=== PATIENT | female | born 1945 | race Caucasian/White ===

== ENCOUNTER 2019-07-19 14:44 | Inpatient (IN) ==
[2019-07-19] MEDS: NS 1,000 ML IV SCH (16:59)
[2019-07-19 17:05] LABS: URINE SOURCE CLEAN CATCH
[2019-07-19 17:12] LABS: BILIRUBIN URINE NEGATIVE (NEGATIVE); BLOOD URINE NEGATIVE (NEGATIVE); COLOR YELLOW; GLUCOSE URINE NEGATIVE (NEGATIVE); KETONE URINE 100 mg/dL (NEGATIVE); LEUKOCYTES URINE NEGATIVE (NEGATIVE); NITRITE URINE NEGATIVE (NEGATIVE); PH URINE 6.5; PROTEIN URINE TRACE mg/dL (NEGATIVE); SP GRAVITY URINE 1.015; TURBIDITY URINE CLEAR (CLEAR); UR EPITHELIAL CELLS <10 /HPF (<10); URINE BACTERIA NEGATIVE /HPF; URINE RBC <10 /HPF (<10); URINE WBC <10 /HPF (<10); UROBILINOGEN URINE NORMAL (NORMAL)
[2019-07-19 17:34] LABS: URINE CRYSTALS CA OXALATE PRESENT
[2019-07-19 17:49] LABS: AGAP 10; ALB/GLOB RATIO 1.2; ALBUMIN 3.2 g/dL (3.5-5.0); ALKALINE PHOSPHATASE 67 U/L (32-104); BUN 11 mg/dL (8-22); CALCIUM 8.6 mg/dL (8.8-10.2); CHLORIDE 94 mmol/L (98-107); COSMO 259; CREATININE 0.5 mg/dL (0.5-0.9); ESTIMATED GFR > 60; GLUCOSE 83 mg/dL (70-104); GOT 24 U/L (10-30); GPT 10 U/L (10-36); POTASSIUM 3.5 mmol/L (3.5-5.1); SODIUM 130 mmol/L (136-145); TCO2 26 mmol/L (25-35); TOTAL BILIRUBIN 0.47 mg/dL (0.20-1.00); TOTAL PROTEIN 5.9 g/dL (6.3-8.3)
--- NOTE | 2019-07-19 18:20 | CONSULTATION ---
DATE OF CONSULTATION: 07/19/2019 Ms. Vieira is a 73-year-old patient of mine. For really going on 3 months, she has had increasing early satiety, dyspepsia, not eating much. She estimates she has lost about 20 pounds in the last 3 months. She was seen by Dr. Wilcox. He did an EGD and found gastritis and then followed up because she was complaining of abdominal swelling, and he did a colonoscopy in which he found a stricture, 75% to 85%, in the left sigmoid and a biopsy apparently has confirmed cancer. PAST MEDICAL HISTORY: Really uneventful. She has had her tonsils out when she was a child. She had a compression fracture, I think, in the lower thoracic about a year ago. ALLERGIES: She has no known drug allergies. FAMILY HISTORY: Pretty unremarkable except for the fact that her mother had a rare form of liver cancer, apparently metastatic and apparently another family member her sister may have had some liver dysfunction as well. SOCIAL HISTORY: She lives with her . She takes care of her youngest daughter and negative for alcohol, tobacco, or illicit drugs. REVIEW OF SYSTEMS: General: Weight loss as above. About 20 pounds over the last 3 months. HEENT: No change in visual or hearing acuity. She denies any fever or chills. Neck: Without any adenopathy or neck pain. Respiratory: No increased work of breathing or dyspnea. Cardiovascular: No chest pain or tachy palpitation. Gastrointestinal: Early satiety, abdominal bloating, poor appetite, weight loss, dyspepsia. No real true nausea and no trouble swallowing. Musculoskeletal/Neurologic: No focal complaints. Endocrinologic/Hematologic: No significant history. PHYSICAL EXAMINATION: Vital Signs: Temperature 97.5 degrees, pulse 99, respirations 16, blood pressure 112/63. Eyes: Pupils are equal and round. Lungs: Clear in all lung johnson. Cardiovascular: Regular rhythm and rate without murmur or S3. Abdomen: Soft. Nontender, nondistended. Positive bowel sounds. Skin: Warm and dry. Extremities: No pedal edema. LABORATORY DATA: The only thing back right now is the urinalysis. ASSESSMENT AND PLAN: 1. Left sigmoid stricture. Looks like malignancy. I think the plan is to get a CT scan and make sure there is no metastatic disease. Dr. Rueda is the oncologist, admitted to Dr. Morales's service, and Dr. Wilcox is following from Gastroenterology. CT of the abdomen and pelvis ordered for in the morning. 2. She has lost 20 pounds in 3 months. I am going to put her on some Clinimix. We are going to check her T4, TSH, B12, and folate. I think we will check an a.m. cortisol level as well, and we will check her electrolytes with magnesium and another CBC in the morning. We will give her fluids, basically just Clinimix, and I think she is on a clear liquid diet, n.p.o. after midnight in preparation a CT scan. cc: MD Fidel Elizondo MD MTDGissel
--- NOTE | 2019-07-19 18:47 | GASTROENTEROLOGY CONSULTATION ---
DATE: 07/19/2019 REASON FOR CONSULTATION: Colonic mass. HISTORY OF PRESENT ILLNESS: Ms. Kat Vieira is a 73-year-old woman who underwent recent colonoscopy on 07/16/2019 for abdominal pain and weight loss, found to have a partially obstructing mass in the hepatic flexure by Dr. Wilcox. The mass was biopsied, site was tattooed, and she was referred to Oncology and Surgery. She was seen by Dr. Rueda today and he was concerned that given her anemia and inability to tolerate oral contrast that she would need admission for expedited workup and definitive treatment. She reports some abdominal discomfort, but no nausea vomiting.She is having bowel movements. No rectal bleeding. No cardiopulmonary symptoms. She is tolerating clear liquids. She is scheduled for staging CT in the morning. REVIEW OF SYSTEMS: As per HPI; otherwise 12-point ROS negative PAST MEDICAL HISTORY: 1. Hypothyroidism. 2. Anxiety. PAST SURGICAL HISTORY: Reviewed. ALLERGIES: No known drug allergies. SOCIAL HISTORY: No smoking, alcohol, or drug use. FAMILY HISTORY: Mother had liver cancer. MEDICATIONS: 1. Thyroid medicine. 2. Clonazepam. 3. Omeprazole. 4. Culturelle. PHYSICAL EXAMINATION: Vital Signs: Temperature 97.5 degrees, heart rate 99, respiratory rate 16, blood pressure 112/63, O2 saturation 100% on room air. General: Patient is awake, alert, oriented, in no acute distress. She is thin. HEENT: Sclerae anicteric. Moist mucous membranes. Extraocular motor intact. Neck: Supple. No JVD or lymphadenopathy. Cardiac: Regular rate and rhythm. No murmurs, rubs, or gallops. Lungs: Clear to auscultation bilaterally. No wheezing. Abdomen: Minimally distended. Bowel sounds are present. Minimal tenderness to palpation throughout. No rebound or guarding. Extremities: No clubbing, cyanosis, or edema. Neurologic: Nonfocal. LABS: Pending. Staging CT ordered for the morning. ASSESSMENT AND PLAN: Ms. Kat Vieira is a 73-year-old woman who presented to Dr. Wilcox as an outpatient with progressive weight loss and diarrhea, found to have a partially obstructing colonic mass in the hepatic flexure. The patient was admitted for expedited workup by Dr. Morales and Dr. Rueda. Staging CT is scheduled for the morning. The colonic mass is not amenable for colonic stent placement, given the location in the right colon, particularly the hepatic flexure, which is high risk for migration and perforation. At this time, she does not appear to have complete bowel obstruction. # Colonic mass # Partial bowel obstruction # Anemia # Weight loss # Diarrhea Thank you for this consult. Please call with any questions. We will follow peripherally. cc: Fidel Morales MD MTDD
[2019-07-19 18:55] LABS: BASO# 0.02 X1000 (0.0-0.2); BASO% 0.2 % (0.0-0.8); EOS# 0.15 X1000 (0.0-0.7); EOS% 1.6 % (0.0-10.0); HEMATOCRIT 32.5 % (37.0-47.0); HEMOGLOBIN 10.5 g/dL (12.0-16.0); LYMPH# 1.64 X1000 (1.2-3.4); LYMPH% 17.8 % (20.5-51.1); MCH 26.6 PG (27-31); MCHC 32.3 g/dL (33-37); MCV 82.3 FL (81-99); MONO% 7.6 % (1.7-9.3); MPV 9.6 FL (7.4-10.4); NEUT% 72.8 % (42.2-75.2); PLT 350 X1000 (130-400); RBC 3.95 XMIL (4.2-5.4); RDW 14.2 % (11.5-14.5); WBC 9.21 X1000 (4.8-10.8)
[2019-07-19 19:26] LABS: AGAP 11; ALBUMIN 2.8 g/dL (3.5-5.0); ALKALINE PHOSPHATASE 64 U/L (32-104); BUN 10 mg/dL (8-22); CALCIUM 8.8 mg/dL (8.8-10.2); CHLORIDE 99 mmol/L (98-107); COSMO 274; CREATININE 0.4 mg/dL (0.5-0.9); ESTIMATED GFR > 60; GLUCOSE 110 mg/dL (70-104); GOT 26 U/L (10-30); GPT 9 U/L (10-36); POTASSIUM 3.7 mmol/L (3.5-5.1); SODIUM 137 mmol/L (136-145); TCO2 27 mmol/L (25-35); TOTAL BILIRUBIN 0.38 mg/dL (0.20-1.00); TOTAL PROTEIN 5.5 g/dL (6.3-8.3)
[2019-07-19 19:52] LABS: TSH 0.88 uIUmL (0.27-4.20)
[2019-07-19] MEDS: CLINIMIX E 4.25%-5% SOLUTION 1,000 ML IV SCH (20:03)
[2019-07-20] MEDS: CLINIMIX E 4.25%-5% SOLUTION 1,000 ML IV SCH ×2 (04:44→18:40)
[2019-07-20] MEDS: PROTONIX PO SCH (06:43)
--- NOTE | 2019-07-20 08:23 | Diag Imaging Result Doc PS360 ---
CT ABD/PELVIS W/PO AND IV CON - 07/20/2019 INDICATION: colon mass COMPARISON: None FINDINGS: The lung bases are clear and the heart size is normal. There are numerous simple well-circumscribed, round fluid density cysts throughout the liver. The largest is in the central right lobe and measures 4.3 x 3.8 cm. The majority however measure less than a centimeter. There are numerous peripelvic cysts of the left kidney. Otherwise the kidneys are normal. The adrenals, pancreas, and spleen are normal. The transverse colon is very redundant and looped solidly down into the mid pelvis. There is a large mass of the mid-distal transverse colon causing an apical core type stricture. In total this mass measures about 8.6 x 5.9 cm in length and breath. No significant adenopathy. Trace pelvic free fluid. Urinary bladder, uterus, and rectum are normal. There is a large benign bony hemangioma in L3. There are high-grade compression fractures of T12, L1, L4, and L5. There are also several compression fractures of the upper thoracic spine. No bony retropulsion. IMPRESSION: 1. Large, nearly obstructing mass in the mid-distal transverse colon. 2. Cyst in the liver and peripelvic cysts of the left kidney. 3. Several compression fractures in the thoracolumbar spine. This exam was performed using automated exposure control, adjustment of mA or kV according to patient size, and/or use of iterative reconstruction technique Electronically signed by Gennaro Loredo 07/20/2019 8:21 AM
--- NOTE | 2019-07-20 08:29 | GENERAL SURGERY PROGRESS NOTE ---
DATE: 07/20/2019 SUBJECTIVE: The patient seems to be doing okay. OBJECTIVE: Vital Signs: The patient is currently afebrile. Her vital signs are stable. General: No acute distress. HEENT: Normocephalic, atraumatic. Pupils equal, round, reactive to light. Mucous membranes moist. Oropharynx benign. Neck: Supple. Trachea midline. Cardiovascular: Regular rate and rhythm. Lungs: Grossly clear. Abdomen: Soft, nontender at this time. Extremities: Moves all extremities. Neurologic: Grossly intact. Skin: No signs of jaundice. Vascular: All extremities perfused. LABORATORY DATA: White blood cell count is normal. Hematocrit is slightly low at 32. Platelet count 350,000. CMP reviewed. Of note, her albumin is 2.8. ASSESSMENT AND PLAN: A 73-year-old female with hepatic flexure mass. 1. Colonic mass. At this time, will get a CT scan for staging purposes. Will also get a baseline CEA, PT, PTT given the fact she is likely going to require surgery in the near future. Will follow up with the results of these, and make further recommendations as far as plan. Will keep her on a clear liquid diet for right now. 2. Severe protein malnutrition. At this time, we have started her on Clinimix, but will need to consider preoperative and perioperative total parenteral nutrition since her albumin is low. 3. Multiple medical comorbidities. Currently being managed by Dr. López. cc: Fidel Morales MD
[2019-07-20] MEDS ORDERED: NS 250 ML ONE (08:32)
[2019-07-20 08:46] LABS: INR 1.18; PROTIME 15.2 Seconds (11.0-16.0)
[2019-07-20 08:47] LABS: PTT 31.3 Seconds (22.3-41.8)
--- NOTE | 2019-07-20 09:49 | PROGRESS NOTE ---
DATE: 07/20/2019 Ms. Vieira did not sleep much last night but the CT scan did not show any sign of metastasis and I think the plan is for a partial colon resection on . OBJECTIVE: Vital Signs: She remains afebrile, temperature 98.4 degrees, pulse 90, respirations 19, blood pressure 121/62. HEENT: Pupils are equal and round. Lungs: Are clear in all lung johnson. Cardiovascular: Regular rhythm and rate without murmur or S3. Abdomen: Is soft. Skin: Is warm and dry. LABORATORY DATA: Review of lab from yesterday, white count 9210, hematocrit 32, platelet count 350,000. Sodium 137, potassium 3.7, chloride 99, BUN 10, creatinine 0.4, albumin 2.8. B12 was 1000. Folate 25. T4 1.26, TSH 0.88. Pro time is 15. Urinalysis unremarkable. Plan is to put a PICC line and start TPN. I had started her on Clinimix yesterday. She is on Protonix 40 mg p.o. daily and I will probably give her high-dose Protonix IV when we are close to surgery as she does have underlying gastritis. cc: MD Fidel Elizondo MD
[2019-07-20 10:59] LABS: IRON SATURATION 14 %; TIBC 154 ug/dL; TOTAL IRON 21 ug/dL (49-151); UNBOUND IRON 133 ug/dL (112-346)
[2019-07-20 11:05] LABS: AGAP 9; ALBUMIN 2.6 g/dL (3.5-5.0); BUN 9 mg/dL (8-22); CALCIUM 8.4 mg/dL (8.8-10.2); CHLORIDE 102 mmol/L (98-107); COSMO 275; CREATININE 0.5 mg/dL (0.5-0.9); ESTIMATED GFR > 60; GLUCOSE 112 mg/dL (70-104); MAGNESIUM 2.2 mg/dL (1.5-2.7); PHOSPHORUS 3.9 mg/dL (2.7-4.5); POTASSIUM 4.5 mmol/L (3.5-5.1); SODIUM 138 mmol/L (136-145); TCO2 27 mmol/L (25-35)
[2019-07-20] MEDS ORDERED: D10W 1,000 ML IV SCH (13:00)
[2019-07-20] MEDS ORDERED: HUMULIN R SUBQ SCH (13:00)
--- NOTE | 2019-07-20 13:58 | HEMO/ONC CONSULTATION ---
DATE: 07/20/2019 REASON FOR CONSULTATION: Evaluation of colonic mass. HISTORY OF PRESENT ILLNESS: This is a patient referred to our office from Dr. Wilcox. His evaluation showed a near obstructing colon mass. The patient went to Dr. Wilcox for routine colonoscopy with a history of early satiety, dyspepsia and decreased appetite for approximately 3 months. She states she had abdominal swelling, pain and has lost about 20 pounds in the last [address] Wilcox's colonoscopy found a 75 to 85 percent stricture in the left sigmoid and a biopsy confirmed cancer. The patient was admitted yesterday for further evaluation. She had a abdominal CT this morning. PAST MEDICAL HISTORY: Hypothyroidism and anxiety. PAST SURGICAL HISTORY: Tonsillectomy and a lower thoracic compression fracture approximately a year ago. ALLERGIES: No known drug allergies. HOME MEDICATIONS: Probiotic, Prilosec, MiraLAX, thyroid medication and Clonazepam. SOCIAL HISTORY: Patient denies smoking, alcohol, or drug use. FAMILY HISTORY: Mother had liver cancer. REVIEW OF SYSTEMS: Positive for weight loss, approximately 20 pounds over the last 3 months, early satiety, abdominal bloating, poor appetite, dyspepsia. Denies nausea, vomiting, diarrhea, or trouble swallowing. PHYSICAL EXAM: Vital Signs: Temperature 98.4 degrees, pulse rate 90, respiratory rate 19, blood pressure 121/62, O2 saturation 100% on room air. She is in 0/10 pain. General: Elderly female in no acute distress. Thin female with a BMI of 19.5. Skin: Warm, dry, and intact without rashes or lesions. HEENT: Sclerae is anicteric. PERRLA. Oral mucosa is pink and moist. Cardiovascular: Normal S1, S2. Heart rate and rhythm regular. No gallops, murmurs, or rubs auscultated. Respiratory: No signs of respiratory distress. Lungs are clear to auscultation. No adventitious breath sounds. Abdomen: Soft, nontender without distention. Musculoskeletal: Upper and lower extremities without edema. Neurological: Awake, alert, and oriented x3. LABORATORY: No CBC done today. Yesterday's hemoglobin 10.5, hematocrit 32.5, platelet count 350,000. Chemistry today: Iron 21, iron percent sat 14, ferritin 152, vitamin B12 1031, folate 25.8, cortisol 16.8, CEA 2.4. RADIOLOGY: Abdomen, pelvis CT showed a near obstructing colon mass with lymph node involvement and liver cyst. ASSESSMENT: 1. Colonic mass with left sigmoid stricture. 2. Severe protein malnutrition. 3. Normocytic anemia. PLAN: 1. The CT scan did not show any evidence of disease metastasis. 2. Dr. Morales plans to take the patient to surgery for partial colon resection on . 3. We have added an iron profile to evaluate her anemia and will consider IV iron if necessary. 4. Continue to manage the patient's nutritional needs. We will continue to follow closely. Dictated by ZAMZAM Puckett for Aldair Rueda MD Patient seen and examined. As above. Patient presented with abdominal cramping and weight loss. She was admitted to the hospital due to near obstructing colon mass with symptoms. CT of the abdomen and pelvis done this morning reveals near obstructing colon mass with lymph node with lymph node enlargement. Discussed with Dr. Fidel Morales. Proceed with surgery as planned. Check anemia labs and plan to give IV iron as needed. Aldair Rueda M.D. cc: MD Fidel Ram MD [facility]ITAL[facility]issel
[2019-07-20] MEDS ORDERED: TPN ELECTROLYTES 20 ML, MAGNESIUM SULFATE 4 MEQ, POTASSIUM CHLORIDE 30 MEQ, SODIUM PHOS... IV SCH ×8 (15:00)
[2019-07-20] MEDS: LIPOSYN 20% 250 ML IV SCH (15:04)
[2019-07-20] MEDS: NS 1,000 ML IV SCH (18:40)
[2019-07-20] MEDS: HUMULIN R SUBQ SCH ×2 (18:41→21:45)
[2019-07-21] MEDS: HUMULIN R SUBQ SCH ×5 (01:43→19:10)
--- NOTE | 2019-07-21 05:51 | GENERAL SURGERY PROGRESS NOTE ---
DATE: 07/21/2019 SUBJECTIVE: Patient seems to be doing well. No major issues. We reviewed her CT scan yesterday. This looks like it is amenable to resection. I discussed with her this extensively yesterday. OBJECTIVE: Vital Signs: Patient is currently afebrile. Her vital signs are stable. General: No acute distress. HEENT: Normocephalic, atraumatic. Pupils equal, round, reactive to light. Mucous membranes moist. Oropharynx benign. Neck: Supple. Trachea midline. Cardiovascular: Regular rate and rhythm. Lungs: Grossly clear. Abdomen: Soft, nontender. Extremities: Moves all extremities. Neurologic: Grossly intact. Skin: No signs of jaundice. Vascular: All extremities perfused. LABORATORY: Reviewed. 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 Colon cancer. At this time, we will plan on surgical intervention tomorrow. Discussed with her yesterday the risks, benefits, alternatives of the procedure. Risks including, but not limited to bleeding, infection, risk of anesthesia, risk of anastomotic issues, risk of recurrence, risk of injuring other organs discussed. She voiced understanding wished to proceed with the procedure. We will make her NPO after midnight tonight. We will put her on antibiotics tomorrow for the perioperative time. We will proceed with intervention. cc: Fidel Morales MD
[2019-07-21] MEDS: PROTONIX PO SCH (05:59)
[2019-07-21 06:04] LABS: ESTIMATED GFR > 60
[2019-07-21 06:13] LABS: AGAP 8; BUN 9 mg/dL (8-22); CALCIUM 8.4 mg/dL (8.8-10.2); CHLORIDE 102 mmol/L (98-107); CHOLESTEROL 91 mg/dL (0-200); COSMO 275; CREATININE 0.4 mg/dL (0.5-0.9); GLUCOSE 107 mg/dL (70-104); GOT 17 U/L (10-30); MAGNESIUM 2.3 mg/dL (1.5-2.7); PHOSPHORUS 4.1 mg/dL (2.7-4.5); POTASSIUM 4.1 mmol/L (3.5-5.1); SODIUM 138 mmol/L (136-145); TCO2 28 mmol/L (25-35); TRIGLYCERIDES 82 mg/dL (35-135)
[2019-07-21] MEDS ORDERED: INJECTAFER 750 MG in NS 250 ML IV ONE (10:00)
--- NOTE | 2019-07-21 10:17 | PROGRESS NOTE ---
DATE: 07/21/2019 SUBJECTIVE: Ms Vieira had a pretty good night, she slept well. Remains afebrile. OBJECTIVE: Vital signs: Temperature 98.1 degrees, pulse 84, respirations 28, blood pressure 114/47. HEENT: Pupils are equal and round. Lungs: Clear in all lung johnson. Cardiovascular: Regular rhythm and rate without murmur or S3. Abdomen: Nondistended, nontender. Genitourinary: Urine output was 1500 mL. ASSESSMENT AND PLAN: Colon mass, left sigmoid stricture, severe protein calorie malnutrition, normocytic anemia. There is no evidence of metastatic disease. Plan is for surgery tomorrow on the left colon. She is on TPN and getting fluid. Her electrolytes look good. Blood sugars look good as well. Hematocrit 32, hemoglobin 10, platelet count 350,000. MCV is 82. She is getting colon prep. cc: MD Fidel Elizondo MD
--- NOTE | 2019-07-21 10:30 | HEMO/ONC PROGRESS NOTE ---
DATE: 07/21/2019 HISTORY OF PRESENT ILLNESS/SUBJECTIVE: The patient is awake and alert this morning, sitting up in bed with her breakfast in front of her. The patient describes that she is hungry but she is only able to eat a few bites of any meal before feeling full. She said she just feels full very quickly. The patient does complain of abdominal pain. She states she did have a good night's sleep. She had no significant events overnight. OBJECTIVE: Vital Signs: Temperature 98.1 degrees, pulse rate 84, respiratory rate 28, blood pressure 114/47, O2 saturation 97% on room air, 4/10 abdominal pain. PHYSICAL EXAMINATION: General: This is an elderly female in no acute distress. Skin: Warm, dry, and intact without ecchymosis or petechiae. HEENT: Sclerae is anicteric. PERRLA. Oral mucosa is pink and moist. Cardiovascular: Normal S1, S2. Heart rate and rhythm regular. Respiratory: No signs of respiratory distress. Lung sounds are clear to auscultation. No adventitious breath sounds heard. Abdomen: Soft, extremely tender to palpation. No distention noted. Musculoskeletal: Upper and lower extremities are without edema. Patient wearing ELFEGO hose. Neurological: Awake, alert, and oriented. No focal motor deficits noted. LABORATORY DATA: Sodium 138, potassium 4.1, creatinine 0.4, calcium 8.4, mag 2.3, phosphorus 4.1. ASSESSMENT: 1. Colonic mass, left sigmoid stricture. 2. Severe protein malnutrition. 3. Normocytic anemia. PLAN: Dr. Morales plans to take the patient to surgery tomorrow morning for a resection. He has discussed this with her and she is agreeable. The patient is iron deficient and we will proceed with 1 dose of IV iron today. We will continue to follow the patient closely. Dictated by ZAMZAM Puckett for Aldair Rueda MD cc: MD Fidel Ram MD MTDD
[2019-07-21] MEDS: NS 1,000 ML IV SCH (13:40)
[2019-07-21] MEDS: LIPOSYN 20% 250 ML IV SCH (15:08)
[2019-07-21] MEDS: TPN ELECTROLYTES 20 ML, MAGNESIUM SULFATE 4 MEQ, POTASSIUM CHLORIDE 30 MEQ, SODIUM PHOS... IV SCH ×8 (15:09)
[2019-07-22] MEDS: HUMULIN R SUBQ SCH ×5 (04:25→17:28)
--- NOTE | 2019-07-22 06:21 | GENERAL SURGERY PROGRESS NOTE ---
DATE: 07/22/2019 SUBJECTIVE: Patient seems to be doing about the same. No major issues. OBJECTIVE: Vital signs: Patient is currently afebrile. Her vital signs are stable. General: No acute distress. HEENT: Normocephalic, atraumatic. Pupils equal, round, reactive to light. Mucous membranes moist. Oropharynx benign. Neck: Supple. Trachea midline. Cardiovascular: Regular rate and rhythm. Lungs: Grossly clear. Abdomen: Soft, nontender, nondistended. Extremities: Moves all extremities. Neurologic: Grossly intact. Skin: No signs of jaundice. Vascular: All extremities perfused. LABORATORY: None this morning as of yet. 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 1. Colon cancer. At this time, we will plan on surgical intervention today. We discussed and documented yesterday the risks, benefits, alternatives. It should be noted that yesterday her pre-albumin was 4. She is already on TPN for severe protein malnutrition. We will plan on procedure today. 2. Severe protein malnutrition. Pre-albumin was 4. She is on TPN. 3. Multiple medical comorbidities. Currently being managed by Dr. López. cc: Fidel Morales MD
[2019-07-22 06:37] LABS: AGAP 9; BUN 13 mg/dL (8-22); CALCIUM 8.5 mg/dL (8.8-10.2); CHLORIDE 100 mmol/L (98-107); COSMO 269; CREATININE 0.3 mg/dL (0.5-0.9); ESTIMATED GFR > 60; GLUCOSE 104 mg/dL (70-104); MAGNESIUM 2.1 mg/dL (1.5-2.7); PHOSPHORUS 3.2 mg/dL (2.7-4.5); POTASSIUM 3.7 mmol/L (3.5-5.1); SODIUM 134 mmol/L (136-145); TCO2 25 mmol/L (25-35)
[2019-07-22] MEDS: PROTONIX PO SCH (06:42)
[2019-07-22] MEDS ORDERED: DIPRIVAN 1% ONE (07:11)
[2019-07-22] MEDS ORDERED: MARCAINE 0.5% PF ONE (08:18)
[2019-07-22] MEDS ORDERED: EXPAREL 1.3% ONE (08:19)
[2019-07-22] MEDS: MEFOXIN 2 GM/NS 2 GM/50 ML IVPB IV SCH ×3 (08:30→20:13)
[2019-07-22] MEDS ORDERED: NEO-SYNEPHRINE ONE (08:43)
[2019-07-22] MEDS ORDERED: SODIUM CHLORIDE 0.9% 20 ML ONE (08:43)
[2019-07-22 08:50] LABS: URINE SOURCE CATH
[2019-07-22] MEDS ORDERED: ROBINUL ONE ×2 (09:01→10:00)
[2019-07-22] MEDS ORDERED: EPHEDRINE ONE (09:02)
[2019-07-22] MEDS ORDERED: DECADRON ONE ×2 (09:10→09:20)
[2019-07-22] MEDS ORDERED: ZOFRAN ONE (09:10)
[2019-07-22] MEDS ORDERED: OFIRMEV 1000 MG/ISOTONIC SOLN 1,000 MG/100 ML BOTTLE ONE (09:10)
[2019-07-22 09:12] LABS: BILIRUBIN URINE NEGATIVE (NEGATIVE); BLOOD URINE NEGATIVE (NEGATIVE); COLOR ORANGE; GLUCOSE URINE NEGATIVE (NEGATIVE); KETONE URINE NEGATIVE (NEGATIVE); LEUKOCYTES URINE NEGATIVE (NEGATIVE); NITRITE URINE NEGATIVE (NEGATIVE); PROTEIN URINE NEGATIVE (NEGATIVE); SP GRAVITY URINE 1.012; TURBIDITY URINE TURBID (CLEAR); UROBILINOGEN URINE NORMAL (NORMAL)
[2019-07-22 09:13] LABS: UR EPITHELIAL CELLS <10 /HPF (<10); URINE BACTERIA NEGATIVE /HPF; URINE RBC <10 /HPF (<10); URINE WBC <10 /HPF (<10)
[2019-07-22] MEDS ORDERED: PITRESSIN ONE (09:16)
--- NOTE | 2019-07-22 09:29 | HEMO/ONC PROGRESS NOTE ---
DATE: 07/22/2019 HISTORY OF PRESENT ILLNESS/SUBJECTIVE: I was able to visit with the patient prior to her leaving for surgery. She is nervous this morning, but she is in ready to have this surgery. She continues to complain of some abdominal pain and she feels very hungry. The patient did have a good night's sleep. She had no significant events overnight. OBJECTIVE: Vital Signs: Temperature 98.4 degrees, pulse rate 92, respiratory rate 16, blood pressure 108/48, O2 saturation 96% on room air. She is in 0/10 pain. PHYSICAL EXAMINATION: General: She is an elderly female in no acute distress. Skin: Warm, dry, and intact without ecchymosis or petechiae. HEENT: Sclera is anicteric. PERRLA. Oral mucosa is pink and moist. Cardiovascular: Normal S1, S2. Heart rate and rhythm regular. Respiratory: No signs of respiratory distress. Lung sounds clear to auscultation. Abdomen: Soft, very tender to any palpation. No distention noted. Musculoskeletal: Upper and lower extremities are without edema. The patient wearing ELFEGO hose. Neurological: Awake, alert, and oriented. No focal motor deficits noted. LABORATORY DATA: No CBC today. Sodium 134, potassium 3.7, creatinine 0.3, calcium 8.5. ASSESSMENT: 1. Near obstructing colon mass, left sigmoid stricture, most likely colon cancer. 2. Protein malnutrition. 3. Normocytic anemia. PLAN: The patient is going to surgery today. We will await her pathology. We will continue to follow the patient peripherally. Please call if needed. Dictated by ZAMZAM Puckett for Aldair Rueda MD [facility]
[2019-07-22] MEDS ORDERED: NEOSTIGMINE ONE (10:00)
[2019-07-22] MEDS: DILAUDID ONE ×4 (10:29→10:57)
[2019-07-22] MEDS ORDERED: THYROID PO SCH (11:19)
--- NOTE | 2019-07-22 11:57 | OPERATIVE NOTE ---
PROCEDURE DATE: 07/22/2019 PREOPERATIVE DIAGNOSIS: Distal transverse colon mass. POSTOP DIAGNOSIS: Distal transverse colon mass. PROCEDURE: 1. Open transverse colectomy with hand-sewn end-to-end anastomosis. 2. Open splenic flexure mobilization. SURGEON: Fidel Morales MD. STREETCAR OPERATOR: Dr. Valenzuela. Dr. Valenzuela assisted with the entirety of the case. His presence was crucial to completion of the case. ANESTHESIA: General endotracheal. OPERATIVE FINDINGS: Distal transverse colon mass. COMPLICATIONS: None at the time of this dictation. ESTIMATED BLOOD LOSS: 50 mL. SPECIMEN REMOVED: Transverse colon. BRIEF HISTORY: A 73-year-old female had biopsy-proven malignancy at the transverse colon, felt that she would benefit from resection. The risks, benefits, and alternatives were discussed with the patient and documented on the chart. All questions answered. DESCRIPTION OF PROCEDURE: After informed consent was obtained, the patient was brought to the operative theater, transferred to the operative table, placed supine position. General endotracheal anesthesia was then performed without complication. A formal time-out was then performed confirming patient, date, procedure. All were in agreement. At that time anesthesia did a transabdominal plane block. We then prepped and draped the abdomen in sterile fashion. After a formal time-out, we made a standard midline incision to enter into the abdomen. Upon entry into the abdomen we found the colon with a tattooing from the previous colonoscopy. We started by mobilizing the transverse colon off the stomach and the descending colon in the splenic flexure. We did this, taking down the white line of Toldt, mobilized it freely. We felt that it was amenable to a transverse colectomy along the lines of the middle colic vessel vasculature. We selected an area on the proximal transverse colon, used the stapler after making a small window in the mesentery. We then selected an area in the splenic flexure with good blood supply and used a stapler to come across it. We then took down the mesentery. There were a couple of lymph nodes that had Alysa ink in which we incorporated into the mass, took it all the way down to the middle colic using the LigaSure. Once we had removed it, we examined the abdomen. There was no injury. We mobilized it off the stomach. We then performed a 2 layer hand-sewn anastomosis with 3-0 silk and 3-0 Vicryl with good results. It was a good caliber anastomosis. We then closed the mesenteric defect with interrupted silk stitches. We then irrigated out the abdomen copiously until the suction fluid was clear. The bowel appeared to be viable and good perfusion when we were doing the anastomosis. We then closed the fascia with looped PDS started at either side and closed the skin with shari. The patient tolerated the procedure well and will be transferred back to recovery room. cc: Fidel Morales MD
[2019-07-22] MEDS: NS 1,000 ML IV SCH (12:40)
[2019-07-22] MEDS: MORPHINE IV PRN ×4 (14:44→23:40)
[2019-07-22] MEDS: TPN ELECTROLYTES 20 ML, MAGNESIUM SULFATE 4 MEQ, POTASSIUM CHLORIDE 30 MEQ, SODIUM PHOS... IV SCH ×8 (16:17)
[2019-07-22] MEDS: LIPOSYN 20% 250 ML IV SCH (16:18)
[2019-07-22] MEDS: THYROID PO SCH (16:21)
[2019-07-22] MEDS: HEPARIN SUBQ SCH ×2 (16:21→23:40)
[2019-07-22] MEDS: PERIDEX MT SCH (20:13)
[2019-07-23] MEDS: HUMULIN R SUBQ SCH ×7 (00:39→21:38)
[2019-07-23] MEDS: NS 1,000 ML IV SCH ×3 (02:14→21:29)
[2019-07-23] MEDS: MEFOXIN 2 GM/NS 2 GM/50 ML IVPB IV SCH ×4 (02:14→21:30)
[2019-07-23] MEDS: MORPHINE IV PRN ×8 (02:32→22:42)
[2019-07-23 05:28] LABS: HEMATOCRIT 31.7 % (37.0-47.0); HEMOGLOBIN 10.3 g/dL (12.0-16.0); IMM GRAN# 0.03 X1000 (0.0-0.04); IMM GRAN% 0.2 % (0.0-0.5); LYMPH# 1.48 X1000 (1.2-3.4); LYMPH% 10.2 % (20.5-51.1); MCH 26.5 PG (27-31); MCHC 32.5 g/dL (33-37); MCV 81.5 FL (81-99); MONO# 0.83 X1000 (0.11-0.59); MONO% 5.7 % (1.7-9.3); MPV 10.3 FL (7.4-10.4); NEUT# 12.23 X1000 (1.4-6.5); NEUT% 83.9 % (42.2-75.2); PLT 304 X1000 (130-400); RBC 3.89 XMIL (4.2-5.4); RDW 14.7 % (11.5-14.5); WBC 14.57 X1000 (4.8-10.8)
[2019-07-23 05:54] LABS: AGAP 6; BUN 16 mg/dL (8-22); CALCIUM 8.3 mg/dL (8.8-10.2); CHLORIDE 101 mmol/L (98-107); COSMO 270; CREATININE 0.4 mg/dL (0.5-0.9); ESTIMATED GFR > 60; GLUCOSE 148 mg/dL (70-104); PHOSPHORUS 1.7 mg/dL (2.7-4.5); POTASSIUM 3.8 mmol/L (3.5-5.1); SODIUM 133 mmol/L (136-145); TCO2 26 mmol/L (25-35)
[2019-07-23] MEDS: ULTRAM PO PRN (06:00)
[2019-07-23] MEDS: THYROID PO SCH ×2 (06:01→16:00)
[2019-07-23] MEDS: PROTONIX PO SCH (06:01)
[2019-07-23] MEDS ORDERED: PRILOSEC PO SCH (07:00)
--- NOTE | 2019-07-23 07:36 | GENERAL SURGERY PROGRESS NOTE ---
DATE: 07/23/2019 SUBJECTIVE: Patient seems to say she is feeling a little bit off. She is postop from her surgery. The surgery itself went well. We were able to remove the mass. Nursing staff reports that her blood pressure has been a little bit low. OBJECTIVE: Vital Signs: The patient's current temperature is 97.9 degrees, current blood pressure 92/47, pulse 81. General exam: No acute distress. Cardiovascular: Regular rate and rhythm. Lungs: Grossly clear. Abdomen: Soft, appropriately tender. Dressing intact. ASSESSMENT AND PLAN: A 73-year-old female, currently postoperative day #1 from open transverse colectomy with mobilization of splenic flexure. Postoperative state at this time. 1. Again, she is postoperative day #1. We will monitor her blood pressure. Will give her a bolus of 500 mL of normal saline. She is on total parenteral nutrition and intravenous fluids. She does have good urine output. She has got recent labs with her hematocrit being 31, which is essentially what it was preoperatively. We just need to continue to monitor. We have got her on Mefoxin still at this point, and so will continue to monitor how she does. 2. Multiple medical comorbidities, currently being managed by the hospitalist. cc: Fidel Morales MD
[2019-07-23] MEDS: HEPARIN SUBQ SCH ×2 (07:51→15:52)
[2019-07-23] MEDS: PERIDEX MT SCH ×3 (07:51→21:30)
--- NOTE | 2019-07-23 09:16 | PROGRESS NOTE ---
DATE: 07/23/2019 SUBJECTIVE: She had a rough night, uncomfortable. She did finally take some morphine. OBJECTIVE: Temperature 97.7 degrees, pulse 74, respirations 24, blood pressure 98/46. Blood pressure has been between 98 to 111/46 to 59. Pupils are equal. No distended neck veins. Her mouth mucosa and mouth is dry. Lungs are clear anterolateral. She is breathing comfortably. Cardiovascular exam with regular rate without murmur or S3. Abdomen is nondistended, uncomfortable. No pedal edema. ASSESSMENT/PLAN: 1. This is postoperative day #1. She is getting total parental nutrition and IV fluids. Lab unremarkable. Hematocrit 31, which is essentially what she had on preoperative labs. 2. Compression fracture. 3. Osteoarthritis. 4. Protein calorie malnutrition. Continue TPN. She is getting normal saline at 80 mL an hour. She is getting total parental nutrition. She is getting her thyroid 30 mg p.o. q. 0700 and at 1400. She has Ultram 50 mg p.o. q.6 hours p.r.n. pain. She gets morphine 2 mg IV q.2 hours p.r.n. She is on Protonix 40 mg daily. cc: MD Fidel Elizondo MD
[2019-07-23] MEDS: LIPOSYN 20% 250 ML IV SCH (14:08)
[2019-07-23] MEDS ORDERED: TPN ELECTROLYTES 20 ML, MAGNESIUM SULFATE 4 MEQ, POTASSIUM CHLORIDE 30 MEQ, SODIUM PHOS... IV SCH ×8 (15:00)
[2019-07-23] MEDS: ZOFRAN IV PRN (21:34)
[2019-07-24] MEDS: HUMULIN R SUBQ SCH ×6 (01:17→21:15)
[2019-07-24] MEDS: MEFOXIN 2 GM/NS 2 GM/50 ML IVPB IV SCH ×4 (01:32→20:02)
[2019-07-24] MEDS: HEPARIN SUBQ SCH ×3 (01:32→16:08)
[2019-07-24] MEDS: MORPHINE IV PRN ×10 (01:33→22:28)
[2019-07-24] MEDS: ZOFRAN IV PRN (03:43)
[2019-07-24 06:38] LABS: AGAP 7; BUN 22 mg/dL (8-22); CALCIUM 7.6 mg/dL (8.8-10.2); CHLORIDE 100 mmol/L (98-107); COSMO 267; CREATININE 0.4 mg/dL (0.5-0.9); ESTIMATED GFR > 60; GLUCOSE 119 mg/dL (70-104); MAGNESIUM 1.9 mg/dL (1.5-2.7); PHOSPHORUS 1.3 mg/dL (2.7-4.5); POTASSIUM 3.8 mmol/L (3.5-5.1); SODIUM 131 mmol/L (136-145); TCO2 24 mmol/L (25-35)
--- NOTE | 2019-07-24 07:22 | GENERAL SURGERY PROGRESS NOTE ---
DATE: 07/24/2019 SUBJECTIVE: The patient had a little bit of nausea yesterday, but otherwise doing okay. She has been taken much in p.o., but she is on TPN. She has not passed gas, but she feels like she is burping. OBJECTIVE: Her abdomen is soft. Incision with dressing intact. She has hypoactive bowel sounds. ASSESSMENT AND PLAN: She is currently postoperative day #2 from open transverse colectomy, so we will continue to manage her and await return of bowel function. cc: Fidel Morales MD
[2019-07-24] MEDS: THYROID PO SCH ×2 (07:47→16:08)
[2019-07-24] MEDS: PROTONIX PO SCH (07:48)
[2019-07-24] MEDS ORDERED: SODIUM CHLORIDE 0.9% INJ PRN (08:39)
[2019-07-24] MEDS: PERIDEX MT SCH ×2 (08:49→20:02)
[2019-07-24] MEDS: PHENERGAN IV PRN (08:50)
--- NOTE | 2019-07-24 09:05 | PROGRESS NOTE ---
DATE: 07/24/2019 SUBJECTIVE: Ms. Vieira is still pretty miserable. She is having a good amount of nausea. OBJECTIVE: Vital Signs: Temperature 98.2 degrees, pulse 100, respirations 19, blood pressure 109/63. Eyes: Pupils are equal and round. Lungs: Clear in all lung johnson. Cardiovascular exam: Regular rhythm and rate without murmur or S3. Abdomen: Abdomen is soft. Skin: Warm and dry. : Urine output was almost 9 L. ASSESSMENT AND PLAN: 1. Postoperative day #2 for open transverse colectomy. Await return of her bowel function. She is having a good deal of nausea. 2. History of compression fracture. 3. Osteoarthritis. 4. Protein calorie malnutrition. Continue her total parenteral nutrition. I am going to expand what she can have for nausea. Let her have a little bit of Phenergan; she can have 25 mg intravenous every 12 hours as needed. cc: MD Fidel Elizondo MD
[2019-07-24] MEDS ORDERED: POTASSIUM PHOSPHATE 40 MEQ in NS 250 ML IV ONE (10:20)
[2019-07-24] MEDS: NS 1,000 ML IV SCH (10:23)
[2019-07-24] MEDS: ZOFRAN IV SCH ×3 (10:23→22:00)
--- NOTE | 2019-07-24 10:25 | HEMO/ONC PROGRESS NOTE ---
DATE: 07/24/2019 SUBJECTIVE: Ms. Vieira is not feeling well this morning. She is having a significant amount of nausea. She is having difficulty getting comfortable. She remains on parental nutrition. She has not had a bowel movement post surgery. OBJECTIVE: Vital signs: Temperature 97.9 degrees, pulse rate 97, respiratory rate 20, blood pressure 99/66, O2 saturation 96% on room air. Pain is a 7/10 abdominal pain. General: Elderly appearing female in mild distress. HEENT: Sclera anicteric. PERRLA. Respiratory: Lung sounds clear to auscultation. Cardiovascular: Normal S1, S2. Heart rate and rhythm regular. Abdomen: Soft, slightly tender to palpation. Skin: Warm, dry, and intact without rashes or lesions. LABORATORY: From yesterday, WBCs 14.57, hemoglobin 10.3, hematocrit 31.7, platelet count 304,000, ANC 12.23. ASSESSMENT: 1. Obstructing colon mass, left sigmoid structure, most likely colon cancer, status post resection. 2. Severe protein malnutrition. 3. Normocytic anemia. 4. Nausea. PLAN: We have increased the patient's antiemetic time frame. Please medicate her around the clock appropriately for continued nausea. Continue all other medical management to support the patient. We will continue to follow peripherally. Please call if needed over the weekend. Dictated by ZAMZAM Puckett for Aldair Rueda MD cc: MD Fidel Ram MD
[2019-07-24] MEDS: LIPOSYN 20% 250 ML IV SCH (14:44)
[2019-07-24] MEDS: TPN ELECTROLYTES 20 ML, MAGNESIUM SULFATE 5 MEQ, POTASSIUM CHLORIDE 30 MEQ, SODIUM PHOS... IV SCH ×8 (14:44)
[2019-07-25] MEDS: MORPHINE IV PRN ×10 (00:33→23:51)
[2019-07-25] MEDS: NS 1,000 ML IV SCH ×4 (00:34→15:40)
[2019-07-25] MEDS: HEPARIN SUBQ SCH ×4 (00:34→23:51)
[2019-07-25] MEDS: MEFOXIN 2 GM/NS 2 GM/50 ML IVPB IV SCH ×5 (00:43→21:36)
[2019-07-25] MEDS: HUMULIN R SUBQ SCH ×6 (02:20→21:37)
[2019-07-25] MEDS: ZOFRAN IV SCH ×4 (03:01→21:36)
[2019-07-25 06:16] LABS: AGAP 7; BUN 24 mg/dL (8-22); CALCIUM 8.2 mg/dL (8.8-10.2); CHLORIDE 99 mmol/L (98-107); COSMO 267; CREATININE 0.4 mg/dL (0.5-0.9); ESTIMATED GFR > 60; GLUCOSE 107 mg/dL (70-104); PHOSPHORUS 1.9 mg/dL (2.7-4.5); POTASSIUM 4.1 mmol/L (3.5-5.1); SODIUM 131 mmol/L (136-145); TCO2 25 mmol/L (25-35)
[2019-07-25] MEDS: PROTONIX PO SCH (06:43)
[2019-07-25] MEDS: THYROID PO SCH ×2 (06:43→15:40)
--- NOTE | 2019-07-25 07:19 | GENERAL SURGERY PROGRESS NOTE ---
DATE: 07/25/2019 SUBJECTIVE: The patient says she is passing gas, but having difficulty swallowing. OBJECTIVE: Vital Signs: The patient is currently afebrile. Her vital signs are stable. General: No acute distress, but appears a slightly uncomfortable, female. Cardiovascular: Regular rate and rhythm. Lungs: Grossly clear. Abdomen: Soft, appropriately tender. Hypoactive bowel sounds. LABORATORY DATA: Reviewed. ASSESSMENT AND PLAN: A 73-year-old female, currently postoperative day #3 from open transverse colectomy. Postoperative state. At this time, she has had a slight return of bowel function, but will keep her where she is. She is having almost some dysphagia-like symptoms, and if this persists, may need to consider a swallow study to see if there is any mechanical issue for her swallowing. Otherwise, continue supportive care. cc: Fidel Morales MD
--- NOTE | 2019-07-25 08:27 | PROGRESS NOTE ---
DATE: 07/25/2019 SUBJECTIVE: She had a better night. She slept some, and feels better. Still some low-grade nausea, but she is able to get some ice chips down. OBJECTIVE: Vital Signs: She remains afebrile. Temperature 98.4 degrees, pulse 102, respirations 16, blood pressure 102/50. HEENT: Pupils are equal and round. Lungs: Clear in all lung johnson. Cardiovascular: Regular rhythm and rate without murmur or S3. Abdomen: Nondistended. Starting to hear a few high-pitched bowel sounds. She is passing flatus. LABORATORY DATA: White count 14,570, hematocrit is 31, platelet count 304,000. Chemistry: Sodium 131, potassium 4.1, chloride 99, BUN 24, creatinine 0.4. Blood sugars 119, 112, and 107. ASSESSMENT AND PLAN: 1. This is day 3 from status post transverse colectomy. She has had a slight return of bowel function. She is taking some ice chips and trying to drink a few sips of fluid. 2. Severe protein calorie malnutrition, on total parenteral nutrition right now. 3. Normocytic anemia. 4. Nausea. 5. Osteoarthritis. 6. She has had a compression fracture this last year. Note that her electrolytes look good. She is getting some fluid with some potassium in it. REVIEW OF ORDERS: I do not see any change at this point. She is also getting thyroid for history of hypothyroidism, getting 30 mg p.o. at 7:00 and at 4:00. cc: MD Fidel Elizondo MD
[2019-07-25] MEDS ORDERED: CHLORASEPTIC SPRAY MT ONE (09:15)
[2019-07-25] MEDS: PERIDEX MT SCH ×2 (09:17→21:36)
[2019-07-25] MEDS: LIPOSYN 20% 250 ML IV SCH (14:30)
[2019-07-25] MEDS: TPN ELECTROLYTES 20 ML, MAGNESIUM SULFATE 5 MEQ, POTASSIUM CHLORIDE 30 MEQ, SODIUM PHOS... IV SCH ×8 (14:52)
[2019-07-25] MEDS ORDERED: NS 1,000 ML IV SCH (18:00)
[2019-07-26] MEDS: HUMULIN R SUBQ SCH ×6 (00:30→20:17)
[2019-07-26] MEDS: MEFOXIN 2 GM/NS 2 GM/50 ML IVPB IV SCH ×5 (03:32→22:11)
[2019-07-26] MEDS: MORPHINE IV PRN ×4 (03:32→19:39)
[2019-07-26] MEDS: ZOFRAN IV SCH ×5 (03:32→22:12)
[2019-07-26 06:35] LABS: ESTIMATED GFR > 60
[2019-07-26] MEDS: PROTONIX PO SCH (06:37)
[2019-07-26] MEDS: THYROID PO SCH ×2 (06:37→16:13)
[2019-07-26 06:45] LABS: AGAP 5; BUN 19 mg/dL (8-22); CALCIUM 7.8 mg/dL (8.8-10.2); CHLORIDE 102 mmol/L (98-107); CHOLESTEROL 63 mg/dL (0-200); COSMO 269; CREATININE 0.4 mg/dL (0.5-0.9); GLUCOSE 107 mg/dL (70-104); GOT 15 U/L (10-30); PHOSPHORUS 2.1 mg/dL (2.7-4.5); PREALBUMIN 5.1 mg/dL (20-40); SODIUM 133 mmol/L (136-145); TCO2 26 mmol/L (25-35); TRIGLYCERIDES 63 mg/dL (35-135)
--- NOTE | 2019-07-26 07:04 | GENERAL SURGERY PROGRESS NOTE ---
DATE: 07/26/2019 SUBJECTIVE: The patient is somewhat anxious. She is concerned about her leg swelling. She has had swelling in her hands and legs bilaterally. She still has some degree of nausea, more so than dysphagia. She is not consistently passing gas. OBJECTIVE: Vital Signs: The patient is currently afebrile. Her vital signs are stable. General: Somewhat anxious. Cardiovascular: Regular rate and rhythm. Lungs: Grossly clear. Abdomen: Soft, nondistended. Dressing intact. ASSESSMENT AND PLAN: A 73-year-old female, currently postoperative day #4 from open transverse colectomy. Postoperative state. At this time, she likely has some degree of an ileus. I believe that some of her anxiety is kind of making this seem worse to her, so will need to continue encouraging her and supporting her. She does have a little bit of fluid overload. Dr. López has seen her. We may need to consider decreasing her intravenous fluids or potentially even giving her some Lasix, but will defer to Dr. López. Otherwise, continue supportive care. cc: Fidel Morales MD
[2019-07-26] MEDS: HEPARIN SUBQ SCH ×3 (07:58→23:04)
[2019-07-26] MEDS ORDERED: LASIX IV ONE (09:11)
[2019-07-26] MEDS: PERIDEX MT SCH ×2 (09:39→20:23)
[2019-07-26] MEDS: ULTRAM PO PRN ×3 (09:56→23:04)
--- NOTE | 2019-07-26 11:09 | PROGRESS NOTE ---
DATE: 07/26/2019 SUBJECTIVE: Ms. Vieira is real frustrated because she is having some generalized swelling, but her nausea is much less. She is sitting up in a chair. They are going to get her up and walk her some. OBJECTIVE: Vital Signs: Temp 98.1 degrees, pulse 90, respirations 15, blood pressure 116/71. HEENT: Pupils are equal and round. Lungs: Clear in all lung johnson. Cardiovascular: Regular rhythm and rate without murmur or S3. Abdomen: Nondistended. We are starting to hear some high- pitched bowel sounds. Urine output was 5200 mL. Blood sugar 115, 110, 138. ASSESSMENT AND PLAN: 1. Postoperative day #4, open transverse colectomy, doing well. She has some degree of ileus and a good deal of anxiety. We will get her a little bit of Lasix, and I think I will go ahead and stop her total parenteral nutrition. 2. Severe protein calorie malnutrition. Received some total parenteral nutrition. I think we will stop that at this time. 3. Normocytic anemia. 4. Nausea, which is improved. 5. Osteoarthritis. 6. Had a compression fracture about a year ago. cc: MD Fidel Elizondo MD
[2019-07-26] MEDS ORDERED: TPN ELECTROLYTES 20 ML, MAGNESIUM SULFATE 5 MEQ, POTASSIUM CHLORIDE 30 MEQ, SODIUM PHOS... IV SCH ×8 (16:00)
[2019-07-27] MEDS: HUMULIN R SUBQ SCH ×2 (00:09→05:24)
[2019-07-27] MEDS: ULTRAM PO PRN ×3 (04:48→21:19)
[2019-07-27] MEDS: ZOFRAN IV SCH ×4 (04:50→21:20)
[2019-07-27] MEDS: MEFOXIN 2 GM/NS 2 GM/50 ML IVPB IV SCH ×3 (04:50→15:58)
--- NOTE | 2019-07-27 05:56 | GENERAL SURGERY PROGRESS NOTE ---
DATE: 07/27/2019 SUBJECTIVE: Patient seems to be doing better today. She is in better spirits. OBJECTIVE: Vital Signs: Patient is currently afebrile. Her vital signs are stable. General: No acute distress. Cardiovascular: Regular rate and rhythm. Lungs: Grossly clear. Abdomen: Soft, nondistended. Incision is healing well. Bowel sounds are auscultated. ASSESSMENT AND PLAN: A 73-year-old female, currently postoperative day #5 from open transverse colectomy. Postoperative state. At this time, her ileus seems to be improving. We will put her on a full liquid diet. She does have a little bit of volume overload and we are addressing this with the help of Dr. López, so we will continue to monitor. Hopefully, she will continue to make good progress. cc: Fidel Morales MD
[2019-07-27] MEDS: THYROID PO SCH ×2 (06:00→15:06)
[2019-07-27] MEDS: PROTONIX PO SCH (06:00)
[2019-07-27 06:22] LABS: AGAP 8; BUN 19 mg/dL (8-22); CALCIUM 8.3 mg/dL (8.8-10.2); CHLORIDE 99 mmol/L (98-107); COSMO 271; CREATININE 0.4 mg/dL (0.5-0.9); ESTIMATED GFR > 60; GLUCOSE 99 mg/dL (70-104); MAGNESIUM 2.2 mg/dL (1.5-2.7); POTASSIUM 3.6 mmol/L (3.5-5.1); SODIUM 134 mmol/L (136-145); TCO2 27 mmol/L (25-35)
[2019-07-27] MEDS ORDERED: LASIX IV ONE (08:27)
--- NOTE | 2019-07-27 08:42 | PROGRESS NOTE ---
DATE: 07/27/2019 SUBJECTIVE: She is concerned about the swelling in her feet. Her swelling in her arms has gone down. We did give her some Lasix yesterday. She is getting up and walking and she is feeling some bowel motility. She has not really passed any flatus and not had a bowel movement. OBJECTIVE: Vital signs: Temperature 98 degrees, pulse 87, respirations 18, blood pressure 109/73. HEENT: Pupils are equal. Neck: No distended neck veins. Lungs: Clear anterolateral. Cardiovascular: Regular rhythm and rate without murmur or S3. Abdomen: She feels is distended but it is soft and no real tenderness. Urine output is 5600 mL. LABORATORY DATA: Reviewed from yesterday. Sodium 134, potassium 3.6, chloride 99, BUN 19, creatinine 0.4. Lab from this morning, sodium 134, potassium 3.6, chloride 99, BUN 19, creatinine 0.4. ASSESSMENT AND PLAN: 1. Postoperative day #5 transverse colectomy, doing well. Still has a degree of ileus but increased bowel activity. We will give her some more Lasix today. She has still some generalized fluid swelling in her lower extremities appreciated. 2. Severe protein calorie malnutrition. We have cut her parenteral nutrition down in half the volume she was getting to help with the fluid. 3. Normocytic anemia. 4. Nausea is improved. Her pain is improved. She is taking tramadol. 5. Osteoarthritis. 6. History of compression fracture. So I will give her some Lasix 40 mg IV this morning as well and note that her magnesium is 2.2. cc: MD Fidel Elizondo MD
[2019-07-27] MEDS: MORPHINE IV PRN (09:32)
[2019-07-27] MEDS: HEPARIN SUBQ SCH ×3 (09:35→23:41)
[2019-07-27] MEDS: PERIDEX MT SCH ×2 (09:35→21:20)
--- NOTE | 2019-07-27 13:20 | HEMO/ONC PROGRESS NOTE ---
DATE: 07/27/2019 HISTORY OF PRESENT ILLNESS/SUBJECTIVE: Ms Vieira is continuing to feel better every day. She states she does have less pain than prior days. She complains about a sensation of fullness and distention when she drinks or eats that is typically relieved by her belching. She is concerned about her swollen extremities. She is attempting to walk and be mobile. She had no significant events overnight. OBJECTIVE: VITAL SIGNS: Temperature 97.5 degrees, pulse rate 83, respiratory rate 18, blood pressure 108/66, O2 saturation 98% on room air, 7/10 abdominal pain. PHYSICAL EXAMINATION: General: An elderly appearing female, in no acute distress. HEENT: PERRLA. Anicteric. Oral mucosa is pink and moist. Respiratory: Lung sounds are clear to auscultation. Cardiovascular: Normal S1, S2. Heart rate and rhythm regular. Abdomen: Soft and tender to palpation, slightly distended. Skin: Warm, dry, and intact without rashes or lesions. Musculoskeletal: Bilateral lower extremities have 2+ edema. Right hand has mild edema. She is able to move all 4 extremities. Neurological: Awake, alert and oriented x3. No focal deficits noted. LABORATORY DATA: No CBC. ASSESSMENT: 1. Postoperative day 5, transverse colectomy. 2. Severe protein malnutrition. 3. Normocytic anemia. PLAN: The patient appears to be getting stronger every day. Continue to follow per medical management. We will continue to follow along peripherally. Dictated by ZAMZAM Puckett for Aldair Rueda MD Patient seen and examined. Recovering from surgery. Awaiting pathology. Patient tolerating diet. Will follow up outpatient. Aldair Rueda MD. [facility]
[2019-07-27] MEDS: [UNRECOGNIZED DRUG - OTHER] IV SCH (22:35)
[2019-07-28] MEDS: [UNRECOGNIZED DRUG - OTHER] IV SCH ×4 (03:07→20:07)
[2019-07-28] MEDS: ZOFRAN IV SCH ×4 (03:08→20:08)
[2019-07-28] MEDS: ULTRAM PO PRN ×4 (04:13→23:58)
[2019-07-28 05:39] LABS: BASO# 0.01 X1000 (0.0-0.2); BASO% 0.1 % (0.0-0.8); EOS# 0.25 X1000 (0.0-0.7); EOS% 3.7 % (0.0-10.0); HEMATOCRIT 26.2 % (37.0-47.0); HEMOGLOBIN 8.5 g/dL (12.0-16.0); IMM GRAN# 0.03 X1000 (0.0-0.04); IMM GRAN% 0.4 % (0.0-0.5); LYMPH# 1.17 X1000 (1.2-3.4); LYMPH% 17.3 % (20.5-51.1); MCH 26.6 PG (27-31); MCHC 32.4 g/dL (33-37); MCV 82.1 FL (81-99); MONO# 0.63 X1000 (0.11-0.59); MONO% 9.3 % (1.7-9.3); MPV 10.3 FL (7.4-10.4); NEUT# 4.69 X1000 (1.4-6.5); NEUT% 69.2 % (42.2-75.2); PLT 307 X1000 (130-400); RBC 3.19 XMIL (4.2-5.4); RDW 15.8 % (11.5-14.5); WBC 6.78 X1000 (4.8-10.8)
[2019-07-28] MEDS: PROTONIX PO SCH ×3 (05:51→20:08)
[2019-07-28] MEDS: THYROID PO SCH ×3 (05:51→16:09)
[2019-07-28 06:08] LABS: AGAP 9; BUN 15 mg/dL (8-22); CALCIUM 8.2 mg/dL (8.8-10.2); CHLORIDE 95 mmol/L (98-107); COSMO 267; CREATININE 0.4 mg/dL (0.5-0.9); ESTIMATED GFR > 60; GLUCOSE 91 mg/dL (70-104); MAGNESIUM 1.9 mg/dL (1.5-2.7); SODIUM 133 mmol/L (136-145); TCO2 29 mmol/L (25-35)
--- NOTE | 2019-07-28 07:10 | GENERAL SURGERY PROGRESS NOTE ---
DATE: 07/28/2019 SUBJECTIVE: Patient seems to be doing better. She is in better spirits. Objective: Vital signs: Patient is currently afebrile, her vital signs are stable. General: No acute distress. Cardiovascular: Regular rate and rhythm. Lungs: Grossly clear. Abdomen: Soft, appropriately tender. Incision healing well. ASSESSMENT AND PLAN: A 73-year-old female, currently postoperative day #6 from an open transverse colectomy. Postoperative state. At this time, she seems to be improving. She is on full liquids. She seems to be tolerating it okay. She wants to hold on full liquids for right now because she is having a little bit of nausea. We are still working on mobilization since she is severely deconditioned. We will continue to follow her. cc: Fidel Morales MD
--- NOTE | 2019-07-28 08:16 | PROGRESS NOTE ---
DATE: 07/28/2019 Ms. Vieira is sitting up beside the bed. She had a little better night and was able to tolerate fluids. She did pass flatus. OBJECTIVE: Vital Signs: Temperature 98.3 degrees, pulse 80, respirations 18, blood pressure 116/60. HEENT: Pupils are equal. Neck: No distended neck veins. Lungs: Are clear in all lung johnson. Cardiovascular: Regular rate without murmur or S3. Abdomen: Is soft. Skin: Is warm and dry. White count 6780, hematocrit is 26, hemoglobin 8.5, platelet count 307,000. Sodium 133, potassium 4.0, chloride 95, BUN 15, creatinine 0.4. ASSESSMENT AND PLAN: 1. This is postoperative day #6 open transverse colectomy for colon cancer. Still await final pathology. Seems to be improving. Bowel motility improving. Has passed flatus. Advance diet as able. She is going to hold on full liquids. 2. Osteoarthritis. 3. Compression fracture last year. So she has a normocytic anemia. Hematocrit is 26, hemoglobin 8.5, which is dropped since surgery. We will watch. Her MCV is 82, so she will be on iron. She also has underlying gastritis that we need to continue to try to treat with high-dose Protonix. cc: MD Fidel Elizondo MD
[2019-07-28] MEDS: HEPARIN SUBQ SCH ×3 (10:10→23:35)
[2019-07-28] MEDS: PERIDEX MT SCH ×2 (10:11→20:10)
[2019-07-29] MEDS: [UNRECOGNIZED DRUG - OTHER] IV SCH ×5 (01:13→20:38)
[2019-07-29] MEDS: ZOFRAN IV SCH ×5 (01:13→20:39)
[2019-07-29] MEDS: THYROID PO SCH ×2 (06:48→15:27)
[2019-07-29] MEDS: PROTONIX PO SCH ×3 (06:49→20:38)
--- NOTE | 2019-07-29 06:51 | GENERAL SURGERY PROGRESS NOTE ---
DATE: 07/29/2019 SUBJECTIVE: Patient seems to be doing okay. She is passing gas. She still has a little bit of burping. OBJECTIVE: Vital Signs: Patient is currently afebrile. Her vital signs are stable. General: No acute distress. Cardiovascular: Regular rate and rhythm. Lungs: Grossly clear. Abdomen: Soft, appropriately tender. Incision is healing well. ASSESSMENT AND PLAN: A 73-year-old female currently postoperative day #7 from open transverse colectomy. Postoperative state. At this time she seems to be improving. Will put her on a GI soft diet. Will need to continue to mobilize her, continue to try to get her up and ambulating and await definitive return of bowel function. cc: Fidel Morales MD
[2019-07-29] MEDS: HEPARIN SUBQ SCH ×2 (08:45→15:24)
[2019-07-29] MEDS: PERIDEX MT SCH ×2 (08:46→20:39)
[2019-07-29] MEDS: ULTRAM PO PRN ×3 (08:46→21:58)
[2019-07-30] MEDS: HEPARIN SUBQ SCH ×3 (00:49→17:04)
[2019-07-30] MEDS: ZOFRAN IV SCH ×6 (02:33→21:47)
[2019-07-30] MEDS: ULTRAM PO PRN ×3 (04:09→23:12)
[2019-07-30] MEDS: [UNRECOGNIZED DRUG - OTHER] IV SCH ×4 (04:13→21:47)
[2019-07-30] MEDS: THYROID PO SCH ×2 (06:16→17:04)
--- NOTE | 2019-07-30 06:37 | GENERAL SURGERY PROGRESS NOTE ---
DATE: 07/30/2019 SUBJECTIVE: Patient says she is still a little bloated. OBJECTIVE: Vital Signs: Patient is currently afebrile. Her vital signs are stable. General: No acute distress. HEENT: Normocephalic. Cardiovascular: Regular rate and rhythm. Lungs: Grossly clear. Abdomen: Soft. Maybe some minimal distention. Incision is healing well. ASSESSMENT AND PLAN: A 73-year-old female currently postoperative day number 8 from open transverse colectomy. Postoperative state. At this time, she seems to be doing about the same, although she reports some distention. It is not real significant at this point, but will continue to monitor her. I think she still has a significant amount of anxiety, which is hindering her right now. Will need to continue to monitor until she has definitive return of bowel function. My partners will cover over the weekend. cc: Fidel Morales MD
[2019-07-30] MEDS: PERIDEX MT SCH ×2 (09:17→21:47)
[2019-07-30] MEDS: PROTONIX PO SCH ×2 (09:18→21:47)
[2019-07-30] MEDS ORDERED: MYLICON PO PRN (09:52)
--- NOTE | 2019-07-30 10:10 | PROGRESS NOTE ---
DATE: 07/30/2019 SUBJECTIVE: Ms. Vieira is uncomfortable. She was uncomfortable most of the night. She is having a lot of abdominal distention and in pain. OBJECTIVE: She was sitting up in a chair and temperature is 97.4, pulse 88, respirations 16, blood pressure 109/53. HEENT: Pupils are equal and round. Lungs: Clear in all lung johnson. Cardiovascular exam: Regular rhythm and rate without murmur or S3. Abdomen: Mild distention. Urine output is 2000 mL. ASSESSMENT AND PLAN: 1. This is postoperative day number 8 from transverse colectomy and she is doing real well, uncomfortable. She started soft diet yesterday and I think her colon is starting to have peristalsis, and she is going to have a lot of discomfort. She does not want IV fluids so encouraged her she is going to have drink liquids and keep it down. We can try some Gas-X. She does have medicine for nausea. Continue to get her up out of bed and ambulate. 2. Osteoarthritis. 3. Gastritis, which is pretty severe. She is on a proton pump inhibitor. 4. She had a vertebral compression fracture last year. cc: MD Fidel Elizondo MD
[2019-07-30] MEDS: PHENERGAN IV PRN ×2 (11:27→17:03)
[2019-07-31] MEDS: HEPARIN SUBQ SCH ×4 (01:14→23:20)
[2019-07-31] MEDS: [UNRECOGNIZED DRUG - OTHER] IV SCH ×4 (04:02→21:59)
[2019-07-31] MEDS: ZOFRAN IV SCH ×4 (04:02→20:46)
[2019-07-31] MEDS: ULTRAM PO PRN ×3 (05:12→18:36)
[2019-07-31] MEDS: THYROID PO SCH ×3 (05:13→17:09)
[2019-07-31] MEDS: PERIDEX MT SCH ×2 (09:55→20:43)
[2019-07-31] MEDS: PROTONIX PO SCH ×2 (09:56→20:43)
--- NOTE | 2019-07-31 13:35 | PROGRESS NOTE ---
DATE: 07/31/2019 Ms Kat Vieira is a 73-year-old white female, who on 07/22/2019 underwent an open transverse colectomy with end-to-end anastomosis for cancer of the transverse colon. This morning she is up moving around in her room. Her midline incision is intact. It has 1 area of hematoma that appears to be okay. She has been placed on a GI soft diet which she is starting to take better. She states yesterday she had some abdominal distention which has improved. She admits to flatus per rectum but no bowel movement. We are going to see how she tolerates her diet today. Will increase continued activity and will perform local wound care. cc: MD Fidel Dixon MD
[2019-07-31] MEDS ORDERED: [UNRECOGNIZED DRUG - NUTRITION] IV SCH ×5 (20:00)
[2019-07-31] MEDS ORDERED: D10W 1,000 ML IV SCH (20:00)
[2019-07-31] MEDS ORDERED: [UNRECOGNIZED DRUG - OTHER] IV SCH ×5 (20:07)
[2019-07-31] MEDS ORDERED: AMINOSYN IV SCH ×5 (20:07)
[2019-07-31 20:50] LABS: AGAP 12; BUN 13 mg/dL (8-22); CALCIUM 8.9 mg/dL (8.8-10.2); CHLORIDE 92 mmol/L (98-107); CHOLESTEROL 124 mg/dL (0-200); COSMO 268; CREATININE 0.7 mg/dL (0.5-0.9); ESTIMATED GFR > 60; GLUCOSE 94 mg/dL (70-104); GOT 26 U/L (10-30); MAGNESIUM 2.1 mg/dL (1.5-2.7); PHOSPHORUS 2.4 mg/dL (2.7-4.5); POTASSIUM 3.1 mmol/L (3.5-5.1); PREALBUMIN 8.7 mg/dL (20-40); SODIUM 134 mmol/L (136-145); TCO2 30 mmol/L (25-35); TRIGLYCERIDES 109 mg/dL (35-135)
[2019-07-31] MEDS: [UNRECOGNIZED DRUG - NUTRITION] IV SCH ×5 (21:53)
[2019-08-01] MEDS: ULTRAM PO PRN ×4 (01:30→22:51)
[2019-08-01] MEDS: [UNRECOGNIZED DRUG - OTHER] IV SCH ×4 (04:06→22:51)
[2019-08-01] MEDS: ZOFRAN IV SCH ×5 (06:05→23:34)
[2019-08-01] MEDS: THYROID PO SCH ×2 (06:11→16:37)
[2019-08-01 07:14] LABS: AGAP 9; BUN 13 mg/dL (8-22); CALCIUM 8.3 mg/dL (8.8-10.2); CHLORIDE 94 mmol/L (98-107); COSMO 268; CREATININE 0.5 mg/dL (0.5-0.9); ESTIMATED GFR > 60; GLUCOSE 126 mg/dL (70-104); MAGNESIUM 1.9 mg/dL (1.5-2.7); PHOSPHORUS 1.7 mg/dL (2.7-4.5); POTASSIUM 3.7 mmol/L (3.5-5.1); SODIUM 133 mmol/L (136-145); TCO2 30 mmol/L (25-35)
[2019-08-01] MEDS: PROTONIX PO SCH ×2 (09:24→19:56)
[2019-08-01] MEDS: HEPARIN SUBQ SCH ×3 (09:24→23:34)
[2019-08-01] MEDS: PERIDEX MT SCH ×3 (09:25→20:00)
--- NOTE | 2019-08-01 09:26 | PROGRESS NOTE ---
DATE: 08/01/2019 SUBJECTIVE: Yesterday, Dr. Boland restarted TPN and lipids via a right arm PICC line because she is not getting adequate calories. She drinks about two high-calorie shakes a day for about 700 calories a day. She is having bowel activity. Her abdomen is slightly distended today, but she has had bowel movement and flatus. Her midline incision is healing satisfactorily. She is walking the halls. Her heart rate is 107, blood pressure 104/52, O2 saturation 97%. She is afebrile. She is off antibiotics. PLAN: We need to encourage her to eat. Hopefully, she will get her calories more naturally than TPN. She is on a regular diet, which she just eats very little, and then she is drinking two high- calorie shakes a day. cc: MD Fidel Dixon MD
--- NOTE | 2019-08-01 10:46 | PROGRESS NOTE ---
DATE: 08/01/2019 SUBJECTIVE: Ms. Vieira is postoperative day number 9 following transverse colectomy due to underlying colon cancer. She is passing flatus but has not had a bowel movement. She still has some abdominal bloating and gas. Appetite is significantly reduced. She has very poor p.o. intake. She had TPN initially during her hospitalization, but it was stopped because she was concerned about swelling in her legs. OBJECTIVE: Vital signs: Temperature 98.2, pulse 85, respirations 16, BP is 111/63. Cardiovascular: Regular rate and rhythm. Lungs: Clear. Abdomen: Soft but mildly distended. No rebound or guarding. She has good bowel sounds. ASSESSMENT AND PLAN: 1. Severe protein calorie malnutrition. 2. Colon cancer, status post transverse colectomy. 3. I had a long discussion with Ms. Vieira about the importance of improving her nutritional status. She has severe protein calorie malnutrition. Oral intake is inadequate to meet her caloric needs and to build up her strength. We talked about resuming TPN. She was agreeable to resume TPN while hospitalized. I will resume TPN, and orders were written. We will follow nutritional parameters. cc: MD Fidel Jimenez MD
--- NOTE | 2019-08-01 10:50 | PROGRESS NOTE ---
DATE: 08/01/2019 SUBJECTIVE: Ms. Vieira is postoperative day #10 following a transverse colectomy for resection of an underlying colon cancer. She is still having some abdominal bloating and gas but is passing flatus. She has not had a bowel movement. Her appetite is still poor. She only was able to drink 2 Ensure shakes yesterday. She has severe protein calorie malnutrition. Her albumin was 2.0 with a prealbumin of 5.1. OBJECTIVE: Vital signs: Temperature 98.7 degrees, pulse 95, respirations 20, BP 104/52. Cardiovascular: Regular rate and rhythm. Lungs: Clear. Abdomen: Mildly distended but soft. She has good bowel sounds. No rebound or guarding. ASSESSMENT AND PLAN: 1. Severe protein calorie malnutrition. 2. Colon cancer, status post transverse colectomy. 3. She is significantly malnourished. She only drank 2 Ensure shakes yesterday. She is otherwise not eating. I had a long discussion with Ms. Vieira and her [id number]. I believe in order to build up her strength and improve her nutritional status, that we need to resume TPN. Potentially, I also believe that she would benefit from TPN at home. We did resume TPN yesterday. Her prealbumin today was 8.7. I believe that Ms. Vieira would benefit from TPN at home. We could make arrangements for her to receive TPN while she is sleeping, but she does seem reticent to use TPN at home at this point. I am really concerned that her nutritional intake is so poor that it will significantly delay healing and delay rebuilding her strength. I will defer the decision to Dr. López as to whether or not to continue TPN at home. cc: MD Fidel Jimenez MD
[2019-08-01] MEDS: [UNRECOGNIZED DRUG - NUTRITION] IV SCH ×5 (12:15)
[2019-08-02] MEDS: [UNRECOGNIZED DRUG - NUTRITION] IV SCH ×10 (03:31→19:29)
[2019-08-02] MEDS: [UNRECOGNIZED DRUG - OTHER] IV SCH ×2 (05:46→14:35)
[2019-08-02] MEDS: THYROID PO SCH ×2 (06:29→18:20)
[2019-08-02] MEDS: ULTRAM PO PRN ×3 (06:29→19:29)
[2019-08-02] MEDS: ZOFRAN IV SCH ×3 (06:30→18:20)
[2019-08-02 06:37] LABS: AGAP 6; BUN 19 mg/dL (8-22); CALCIUM 8.4 mg/dL (8.8-10.2); CHLORIDE 95 mmol/L (98-107); COSMO 270; CREATININE 0.4 mg/dL (0.5-0.9); ESTIMATED GFR > 60; GLUCOSE 119 mg/dL (70-104); MAGNESIUM 1.9 mg/dL (1.5-2.7); PHOSPHORUS 1.2 mg/dL (2.7-4.5); POTASSIUM 3.8 mmol/L (3.5-5.1); SODIUM 133 mmol/L (136-145); TCO2 32 mmol/L (25-35)
--- NOTE | 2019-08-02 07:51 | GENERAL SURGERY PROGRESS NOTE ---
DATE: 08/02/2019 SUBJECTIVE: Patient seems to be doing okay. Reviewed notes from the weekend. She was started on TPN, given the concern that she was not taking enough p.o. OBJECTIVE: Vital Signs: The patient is currently afebrile. Her vital signs are stable. General Examination: No acute distress. Cardiovascular: Regular rate and rhythm. Lungs: Grossly clear. Abdomen: Soft, nontender, nondistended. Bowel sounds auscultated. ASSESSMENT AND PLAN: A 73-year-old female, currently postoperative day #11 from open transverse colectomy. Postoperative state. At this time, she has had return of bowel function. She has had a bowel movement. The main concern is her caloric intake. She has severe protein malnutrition as judging by her labs and her overall clinical status. She was restarted on total parenteral nutrition over the weekend given this concern. She has increased her oral intake since then. From a surgical point of view, she seems to be doing okay but I agree with the concern about oral intake. We will just have Dr. López evaluate the patient but hopefully we can get her off total parenteral nutrition and encourage more oral intake. cc: Fidel Morales MD
[2019-08-02 08:17] LABS: BASO# 0.01 X1000 (0.0-0.2); BASO% 0.2 % (0.0-0.8); EOS# 0.21 X1000 (0.0-0.7); EOS% 3.5 % (0.0-10.0); HEMATOCRIT 27.3 % (37.0-47.0); HEMOGLOBIN 8.8 g/dL (12.0-16.0); IMM GRAN# 0.03 X1000 (0.0-0.04); IMM GRAN% 0.5 % (0.0-0.5); LYMPH% 20.1 % (20.5-51.1); MCH 27.3 PG (27-31); MCHC 32.2 g/dL (33-37); MCV 84.8 FL (81-99); MONO# 0.68 X1000 (0.11-0.59); MONO% 11.4 % (1.7-9.3); MPV 10.6 FL (7.4-10.4); NEUT# 3.85 X1000 (1.4-6.5); NEUT% 64.3 % (42.2-75.2); PLT 345 X1000 (130-400); RBC 3.22 XMIL (4.2-5.4); RDW 18.5 % (11.5-14.5); WBC 5.98 X1000 (4.8-10.8)
--- NOTE | 2019-08-02 10:03 | PROGRESS NOTE ---
DATE: 08/02/2019 SUBJECTIVE: Ms. Vieira is doing better. She got three Ensure down yesterday. We have her back on TPN, which she is tolerating and she is stronger. She has had 3 bowel movements. OBJECTIVE: Temperature 98.4 degrees, pulse 90, respirations 16, blood pressure 96/54. Pupils are equal and round. Lungs are clear in all lung johnson. Cardiovascular Examination: Regular rhythm and rate without murmur or S3. Abdomen is soft. She still has some bloating sensation but nontender. No edema. Urine output is 3600 mL. Blood sugar 135, 128, 117. ASSESSMENT AND PLAN: She is currently postoperative day #11 from transverse colectomy. She is making good progress. Bowel and rectal function has returned. Main concern is caloric intake. We had long discussions. She will need to get down a minimum of four Ensure plus supplementary fruit and Jell-O and food. We will aim to go home tomorrow. Continue the total parenteral nutrition until tomorrow morning and increase her activity. Note that her phosphate is low so we will give her some K-Phos today intravenously. cc: MD Fidel Elizondo MD
[2019-08-02] MEDS ORDERED: POTASSIUM PHOSPHATE 40 MEQ in NS 250 ML IV ONE (10:30)
[2019-08-02] MEDS: PERIDEX MT SCH ×2 (10:36→22:34)
[2019-08-02] MEDS: HEPARIN SUBQ SCH (10:36)
[2019-08-02] MEDS: PROTONIX PO SCH ×2 (10:36→20:42)
--- NOTE | 2019-08-02 13:38 | HEMO/ONC PROGRESS NOTE ---
DATE: 08/02/2019 SUBJECTIVE: Ms. Vieira is sitting up in her bedside chair this morning. She is attempting to drink some coffee as well as an Ensure. The patient understands that she is unable to go home due to protein malnutrition. Therefore, she is attempting her best to increase her protein per protein shakes and her nutrition. The patient states she is ready to go home and feels that she could recover better there. She denies any complaint. She had a good night's sleep with no significant events overnight. VITAL SIGNS: Temperature 98.4 degrees, pulse rate 90, respiratory rate 16, blood pressure 96/54, O2 saturation 99% on room air. There is 3/10 pain. PHYSICAL EXAMINATION: General: Elderly appearing female in no acute distress. HEENT: Anicteric. PERRLA. Oral mucosa is moist. Respiratory: Lung sounds are clear to auscultation. Cardiovascular: Normal S1, S2. Heart rate and rhythm regular. Abdomen: Soft, nontender, with mild distention. Skin: Warm, dry, and intact, without rashes or lesion. Musculoskeletal: No edema noted. Neurological: Awake, alert, and oriented x3. No focal motor deficits noted. LABORATORY: WBCs 5.98, hemoglobin 8.8, hematocrit 27.3, platelet count 345,000, ANC 3.85. Sodium 133, creatinine 0.4, calcium 8.4, phosphorus 1.2, magnesium 1.9. ASSESSMENT: 1. Postoperative day 11 from open transverse colectomy. 2. Severe protein malnutrition. 3. Normocytic anemia. PLAN: The patient was placed on total parenteral nutrition over the weekend. She appears to have been getting stronger. The patient is attempting 4 Ensures today. She has a goal of 1 Ensure every 3 hours. She is also attempting to intake other foods. The patient is strongly desiring to go home. It appears Dr. López is considering that tomorrow. Continue to follow medical management. We are awaiting pathology. We will follow up with her on an outpatient basis. Dictated by ZAMZAM Puckett for Aldair Rueda MD cc: MD Fidel Ram MD MTDD
[2019-08-02 13:56] LABS: IRON SATURATION 25 %; TIBC 179 ug/dL; TOTAL IRON 45 ug/dL (49-151); UNBOUND IRON 134 ug/dL (112-346)
[2019-08-02] MEDS ORDERED: MEFOXIN 2 GM in NS 50 ML IV SCH (20:30)
[2019-08-03] MEDS: ZOFRAN IV SCH ×4 (00:50→14:05)
[2019-08-03] MEDS: ULTRAM PO PRN ×3 (01:49→14:05)
[2019-08-03] MEDS: THYROID PO SCH ×2 (06:15→16:46)
[2019-08-03 06:49] LABS: AGAP 10; BUN 18 mg/dL (8-22); CHLORIDE 96 mmol/L (98-107); COSMO 275; CREATININE 0.4 mg/dL (0.5-0.9); ESTIMATED GFR > 60; GLUCOSE 122 mg/dL (70-104); MAGNESIUM 2.1 mg/dL (1.5-2.7); POTASSIUM 4.3 mmol/L (3.5-5.1); SODIUM 136 mmol/L (136-145); TCO2 30 mmol/L (25-35)
[2019-08-03] MEDS ORDERED: POTASSIUM PHOSPHATE 40 MEQ in NS 250 ML IV ONE (07:55)
[2019-08-03] MEDS: PERIDEX MT SCH (08:05)
[2019-08-03] MEDS: PROTONIX PO SCH (08:06)
--- NOTE | 2019-08-03 08:14 | DISCHARGE SUMMARY ---
ADMISSION DATE: 07/19/2019 DISCHARGE DATE: 08/03/2019 This is a 73-year-old patient of mine who had increasing early satiety, dyspepsia, not able to much at all, 20 pound weight loss in 3 months, seen by Dr. Wilcox that did an EGD and found gastritis and found she is complaining abdominal swelling due to colonoscopy, found a stricture 75% to 85% in the left sigmoid, and biopsy confirmed adenocarcinoma, so admitted. Hematology/Oncology was following, Dr. Rueda, a colonic mass in the transverse colon, severe protein calorie malnutrition. She underwent surgery on the and patient suffered a lot of nausea. It took 4 or 5 days before return of peristalsis and bowel activity. We gave her TPN. She had some swelling, uncomfortable with nausea, and continued on the process I felt. She was able to get 3 Ensures down, she needs to try and get four down a day. On 08/03/2019, I stopped the TPN. She still has nausea. She is still uncomfortable and a good deal of anxiety. Plan is for her to go home. DISCHARGE ORDERS: She will be on Protonix 40 mg p.o. twice a day. She will have tramadol 50 mg q.6 hours p.r.n. and nausea medication. We will give her Zofran 4 mg p.o. q.6 hours p.r.n. as well, and she has a history of hypothyroidism, she is on thyroid 30 mg twice a day. Review of lab, her phosphorus has been low, on recheck today phosphorus is back up to 2.0. We will give her some more K-Phos today and note that blood sugars were running in the low 100s but she is on TPN. Will follow her up in my office in a week and follow up with Dr. Morales in a couple of weeks and follow up with Dr. Rueda as well in a couple of weeks. Plan is to get her nutrition up. cc: MD Fidel Elizondo MD
--- NOTE | 2019-08-03 09:38 | GENERAL SURGERY PROGRESS NOTE ---
DATE: 08/03/2019 SUBJECTIVE: Patient says she had a rough day and night but otherwise is doing about the same. OBJECTIVE: Vital Signs: Patient is currently afebrile. Her vital signs are stable. General: No acute distress. Cardiovascular: Regular rate and rhythm. Lungs: Grossly clear. Abdomen: Soft, appropriately tender. Incisions healing well. ASSESSMENT AND PLAN: A 73-year-old female, currently postoperative day #12 from open transverse colectomy. Postoperative state. At this time she has return of bowel function. I think she still has some anxiety. We will discuss with Dr. López but we probably need to get her off IV fluids and total parenteral nutrition, try to see if she can maintain her caloric intake on her own but we will discuss further with Dr. López. cc: Fidel Morales MD
[2019-08-03] MEDS ORDERED: ZOFRAN PO ONE (16:52)
[2019-08-03 17:44] VITALS: BP 122/70
== END 2019-08-03 18:11 | disposition home health service (06) | DRG 329 ==
LOC: DIRADM 14:44 → 4N 15:12
PROVIDERS: ADMIT Surgery; ATTEND Surgery

== ENCOUNTER 2019-08-05 09:11 | Inpatient (IN) ==
[2019-08-05] MEDS ORDERED: PHENERGAN IV PRN (10:21)
[2019-08-05] MEDS ORDERED: TYLENOL PO PRN (10:21)
[2019-08-05] MEDS ORDERED: SODIUM CHLORIDE 0.9% INJ ONE (10:21)
[2019-08-05] MEDS ORDERED: NORCO-7.5 PO PRN (10:21)
[2019-08-05] MEDS ORDERED: SODIUM CHLORIDE 0.9% INJ PRN (10:21)
--- NOTE | 2019-08-05 10:23 | HISTORY AND PHYSICAL ---
HISTORY: This is a 73-year-old patient well known to me recently in the hospital, who had a transverse colectomy with reanastomosis. She also has a history of severe gastritis. She is just unable to eat, early satiety, intractable nausea, anorexia, and not able to keep much in the way of even liquids down so the plan to admit her back to the hospital. I will put her on IV fluids including Clinimix and treat her with high-dose proton pump inhibitor and some Carafate. Dr. Wilcox will be involved, and he will probably want to scope her and that may happen tomorrow. PAST MEDICAL HISTORY: 1. Osteoarthritis. 2. Osteoporosis with some kyphosis. 3. Depression and anxiety. 4. Gastritis. 5. Found a mass in the transverse colon, status post colectomy. FAMILY HISTORY: Unremarkable for cardiac or pulmonary disease. SOCIAL HISTORY: Lives with her and her daughter who requires special needs. REVIEW OF SYSTEMS: She has lost weight over the last 3 months. Continues to have very poor appetite and nausea. Unable to get down even a can of Ensure, and having trouble even with liquids. She is having bowel movements, and she is not having trouble with voiding or urination. Endocrinologic/Hematologic: No significant history. Musculoskeletal and Neurologic: Just general weakness. PHYSICAL EXAMINATION: GENERAL: Exam today, awake, alert and oriented. VITAL SIGNS: The report is that she has been afebrile, pulse 114, respirations 20, blood pressure 121/74, and weight 120 pounds. Height is 5 feet 7 inches. HEENT: Pupils are equal and round. LUNGS: Clear in all lung johnson. CARDIOVASCULAR: Regular rhythm and rate without murmur or S3. ABDOMEN: Nondistended. Reported midline incision looks good. ASSESSMENT/PLAN: Intractable nausea, severe gastritis with early satiety, anorexia and severe protein calorie malnutrition. We are going to put an IV fluid in. We will start Clinimix. I will put her on high-dose Protonix 40 mg twice a day, and we will put her on Carafate 1 g 4 times a day. I will probably consider putting her on some medicine for her depression including considerations to be Remeron to help stimulate appetite. We will check some baseline labs. cc: Panfilo López MD
[2019-08-05 10:36] LABS: INR 1.13; PROTIME 14.7 Seconds (11.0-16.0)
[2019-08-05 10:37] LABS: BASO% 0.1 % (0.0-0.8); EOS% 0.2 % (0.0-10.0); HEMATOCRIT 34.7 % (37.0-47.0); HEMOGLOBIN 11.4 g/dL (12.0-16.0); LYMPH% 7.7 % (20.5-51.1); MCH 27.7 PG (27-31); MCHC 32.9 g/dL (33-37); MCV 84.4 FL (81-99); MONO% 5.9 % (1.7-9.3); MPV 10.1 FL (7.4-10.4); NEUT% 85.8 % (42.2-75.2); PLT 486 X1000 (130-400); RBC 4.11 XMIL (4.2-5.4); RDW 19.4 % (11.5-14.5); WBC 14.07 X1000 (4.8-10.8)
[2019-08-05 10:38] LABS: BASO# 0.01 X1000 (0.0-0.2); EOS# 0.03 X1000 (0.0-0.7); IMM GRAN# 0.04 X1000 (0.0-0.04); IMM GRAN% 0.3 % (0.0-0.5); LYMPH# 1.08 X1000 (1.2-3.4); MONO# 0.83 X1000 (0.11-0.59); NEUT# 12.08 X1000 (1.4-6.5)
--- NOTE | 2019-08-05 10:47 | EKG Report ---
Test Performed on : 08/05/2019 10:27:01 AM Test Reason : chest pain Blood Pressure : / mmHG Vent. Rate : 105 BPM Atrial Rate : 105 BPM P-R Int : 142 ms QRS Dur : 074 ms QT Int : 346 ms P-R-T Axes : 028 -36 001 degrees QTc Int : 457 ms Sinus tachycardia. Left axis deviation Possible , age undetermined Anterolateral infarct , age undetermined Abnormal ECG No previous ECGs available Confirmed by Mireille BASS, Gallo Olivera ([id number]) on 08/05/2019 5:54:21 PM
[2019-08-05] MEDS: PROTONIX IV SCH ×3 (10:54→21:01)
[2019-08-05] MEDS: NS 1,000 ML IV SCH ×2 (10:55→23:16)
[2019-08-05] MEDS: ZOFRAN IV PRN ×2 (10:55→20:27)
--- NOTE | 2019-08-05 11:01 | Diag Imaging Result Doc PS360 ---
EXAM: CHEST-PORTABLE 08/05/2019 HISTORY: abdominal pain TECHNIQUE: AP portable at 1050 COMMENT: There are no previous studies. There is blunting of both costophrenic angles. Possibility of small effusions quickly on the left is suggested. There may also be some atelectasis in the lung bases. IMPRESSION: Pleural effusions and basilar atelectasis. Electronically signed by Morris Abdalla 08/05/2019 10:57 AM
[2019-08-05 11:04] LABS: AGAP 15; ALBUMIN 3.2 g/dL (3.5-5.0); ALKALINE PHOSPHATASE 96 U/L (32-104); BUN 14 mg/dL (8-22); CALCIUM 9.2 mg/dL (8.8-10.2); CHLORIDE 96 mmol/L (98-107); CK PROFILE 30 U/L (24-173); COSMO 273; CREATININE 0.5 mg/dL (0.5-0.9); ESTIMATED GFR > 60; GLUCOSE 111 mg/dL (70-104); GOT 32 U/L (10-30); GPT 21 U/L (10-36); POTASSIUM 4.3 mmol/L (3.5-5.1); SODIUM 136 mmol/L (136-145); TCO2 25 mmol/L (25-35); TOTAL BILIRUBIN 0.56 mg/dL (0.20-1.00); TOTAL PROTEIN 6.3 g/dL (6.3-8.3)
[2019-08-05 11:15] LABS: LYMPHS 4 % (21-51); SEGS 96 % (42-75)
[2019-08-05] MEDS: CARAFATE LIQUID PO SCH ×4 (14:27→21:01)
[2019-08-05] MEDS: CLINIMIX E 4.25%-5% SOLUTION 1,000 ML IV SCH (15:35)
[2019-08-05] MEDS: THYROID PO SCH (15:54)
--- NOTE | 2019-08-05 16:59 | Diag Imaging Result Doc PS360 ---
CT ABDOMEN/PELVIS W/WO CONTRAS - 08/05/2019 INDICATION: abdominal swelling, s/p transverse colectomy COMPARISON: 07/20/2019 FINDINGS: There are small bilateral pleural effusions. There is some bibasilar atelectasis but no infiltrates in the lung bases. There is a small amount of ascites. No radiodense renal stones. No hydronephrosis or hydroureter. There are numerous severely distended small bowel loops, including the stomach and duodenum. There are several collapsed distal small bowel loops in the right lower quadrant. The transition point is unclear but is likely in the midline nor the right lower quadrant. Urinary bladder is distended. Uterus is atrophic. The rectum is normal. There are moderate degenerative changes of the spine. No acute or suspicious bony lesion. IMPRESSION: 1. High-grade mid-distal small bowel obstruction. 2. Very distended urinary bladder. 3. Trace ascites. Small pleural effusions. This exam was performed using automated exposure control, adjustment of mA or kV according to patient size, and/or use of iterative reconstruction technique Electronically signed by Gennaro Loredo 08/05/2019 4:56 PM
--- NOTE | 2019-08-05 18:33 | GASTROENTEROLOGY CONSULTATION ---
DATE: 08/05/2019 PRIMARY CARE PHYSICIAN: Panfilo López MD REASON FOR CONSULTATION: Decreased oral intake, abdominal pain, nausea and vomiting. HISTORY OF PRESENT ILLNESS: Ms Vieira is a 73-year-old female who was recently discharged from the hospital after transverse colectomy with reanastomosis per Dr. Moraels. She had an EGD and colonoscopy as an outpatient where we discovered evidence of obstructing colon mass. She was also noted to have gastritis in the stomach. We will try to obtain the records from my office. In fact, I looked at the biopsy results from my office, and the EGD had showed chronic superficial gastritis without hemorrhage. H pylori was negative. The colonoscopy report had showed evidence of tumor at the hepatic flexure, which was biopsied and chromoscopy procedure was performed. According to the patient, since discharge she has had poor oral intake and low appetite. She did move her bowels yesterday, but she had to strain. She was able to barely keep one Ensure down, but a few hours later, she was able to throw it back up. PAST MEDICAL HISTORY: Osteoarthritis, osteoporosis with kyphosis, depression, anxiety, gastritis, recent colon cancer. FAMILY HISTORY: Unremarkable. SOCIAL HISTORY: She lives with her and her daughter who require special needs. REVIEW OF SYSTEMS: She has lost weight in the last 3 months. She continues to have poor oral intake, poor appetite and nausea. She was also having history of constipation since the surgery. Denies any vomiting blood or passing blood in the stools. She does have a history of arthritis. ALLERGIES: No known drug allergies. MEDICATIONS IN THE HOSPITAL: Include Tylenol, Clinimix 60 mL/h, hydrocodone/acetaminophen, normal saline 85 mL/h, Zofran, Protonix b.i.d., Phenergan, Carafate and thyroid medication. She is currently on liquid diet. We ordered a CT scan of the abdomen and pelvis. PHYSICAL EXAMINATION: Vital signs: Temperature 98.5 degrees, pulse of 98, respiratory rate 20, blood pressure 119/78, saturating 97% on room air, body weight of 120 pounds, BMI 18.8 kg/m2. General: Thinly built, lying in bed, in no acute distress. HEENT: Mild pallor. No icterus. Pupils equal, reactive to light. Neck: Supple. Abdomen: Discomfort in the periumbilical region. Mild protuberance of abdomen. Discomfort on palpation. No guarding. Bowel sounds are present. Extremities: No cyanosis or clubbing. Neurologic: She is alert, awake, oriented x3. LABORATORY DATA: Hemoglobin and hematocrit 11.4 and 34.7, white count of 14.07, platelet count of 486,000. INR 1.13, PTT of 14.7, PTT of 29, sodium 132, potassium 4.3, chloride 96, bicarb 25, anion gap 15, BUN of 14, creatinine 0.5, glucose 111, calcium 9.2, magnesium 2.0, total bilirubin is 0.56, AST 32, ALT 21, alkaline phosphatase 96, total protein is 6.3, albumin of 3.2, TSH is 3.67. IMPRESSION: 1. Decreased p.o. intake and nausea and vomiting. 2. Loss of weight. 3. Lack of appetite. 4. Recent colon cancer diagnosis status post surgery with Dr. Morales. Pathology from the colon resection showed invasive adenocarcinoma 8 cm poorly differentiated extending into serosal tissue, margins negative for carcinoma, lymph node positive for metastatic carcinoma and she is staged as pT3 and pN1. PLAN: 1. We will keep her on IV Clinimix, and we will give her IV fluids and start on Protonix IV b.i.d. Start on Carafate 1g every 6 hours. We will get a CT scan of the abdomen and pelvis to evaluate for any kind of postsurgical complications of patient's leukocytosis and anemia and abdominal discomfort and mild abdominal protuberance. 2. If the CT scan is negative for any kind of postoperative complications, we can start her on MiraLAX twice daily. We will schedule her for EGD tomorrow by Dr. Duque to evaluate for any kind of gastric or duodenal pathology to explain her symptoms. We will also need to check a UA with micro. 3. Further recommendations are pending hospital course. The above plans were discussed with the patient and family at bedside, and all questions were answered. I also spoke with the primary care physician, Dr. López, and all questions were answered. Please call with any further questions. cc: MD Panfilo Roe MD [facility]
--- NOTE | 2019-08-05 21:55 | Diag Imaging Result Doc PS360 ---
CHEST-1 VIEW - 08/05/2019 9:41 PM INDICATION: NG placement confirmation COMPARISON: 10:50 AM FINDINGS: There is a nasogastric tube in good position in the stomach. IMPRESSION: Nasogastric tube in good position in the stomach. Electronically signed by Gennaro Loredo 08/05/2019 9:52 PM
[2019-08-06] MEDS: CLINIMIX E 4.25%-5% SOLUTION 1,000 ML IV SCH ×4 (01:42→23:08)
[2019-08-06] MEDS: CARAFATE LIQUID PO SCH ×5 (04:20→23:08)
[2019-08-06] MEDS: ZOFRAN IV PRN (05:17)
[2019-08-06] MEDS: THYROID PO SCH ×2 (06:00→20:20)
--- NOTE | 2019-08-06 06:16 | GENERAL SURGERY CONSULTATION ---
DATE: 08/06/2019 REQUESTING PHYSICIAN: Dr. López. REASON FOR CONSULTATION: Ileus. HISTORY OF PRESENT ILLNESS: A 73-year-old female who recently underwent a transverse colectomy for colon cancer who had postoperatively done okay. She now presents with failure to thrive with some nausea and vomiting, and inability to maintain adequate p.o. intake. She has been admitted by Dr. López and evaluated. She had a CT scan that showed a possible bowel obstruction versus ileus. She had an NG tube placed with only 400 out. She is still passing gas, and she feels a little bit better. I was asked to weigh an opinion. PAST MEDICAL HISTORY: 1. Osteoarthritis. 2. Osteoporosis. 3. Depression. 4. Anxiety. 5. Gastritis. 6. Colon cancer. PAST SURGICAL HISTORY: Includes recent transverse colectomy. FAMILY HISTORY: Reviewed with patient and noncontributory to this case. SOCIAL HISTORY: Lives with . HOME MEDICATIONS: MAR reviewed. ALLERGIES: Reviewed. REVIEW OF SYSTEMS: A full 14 systems reviewed and negative except as specified in HPI. PHYSICAL EXAMINATION: Vital Signs: The patient is currently afebrile. Vital signs stable. General: No acute distress. Resting comfortably. female. HEENT: Normocephalic, atraumatic. Pupils equal, round, and reactive to light. Mucous membranes moist. Oropharynx benign. Neck: Supple. Trachea midline. Cardiovascular: Regular rate and rhythm. Lungs: Grossly clear. Abdomen: Soft. Appropriately tender. Bowel sounds auscultated. Extremities: Moves all extremities. Neurologic: Grossly intact. Skin: No signs of jaundice. Vascular: All extremities perfused. LABORATORY: Reviewed. ASSESSMENT AND PLAN: A 73-year-old female with ileus. 1. Ileus. At this time, I agree with NG tube although she has relatively good bowel sounds. May need to consider EGD by GI given her gastritis to see if any other issues are arising. We may even consider MiraLAX as it looks like she is constipated. 2. Protein malnutrition. At this time, agree with Clinimix. We will continue to follow. cc: MD Panfilo Pitts MD
[2019-08-06] MEDS: PROTONIX IV SCH ×2 (09:20→22:52)
--- NOTE | 2019-08-06 09:43 | PROGRESS NOTE ---
DATE: 08/06/2019 SUBJECTIVE: Ms Vieira has an NG tube in. We put in about 9 o'clock yesterday. She is feeling better. Nausea has diminished. OBJECTIVE: Vital signs: Temperature 98.3 degrees, pulse 90, respirations 20, blood pressure 99/51. HEENT: Pupils are equal round. Lungs: Clear in all lung johnson. Cardiovascular: Regular rhythm and rate without murmur or S3. Abdomen: Soft. Skin: Warm and dry. Urine output is 3800 mL. ASSESSMENT AND PLAN: 1. Ileus. She has relatively good bowel sounds. I think we are considering doing an EGD. She has known gastritis. She just had intractable nausea with bilious -type emesis and so I put an NG tube in to low wall suction, which she is clinically feeling much better. 2. Severe protein calorie malnutrition. 3. Status post transverse colectomy and has a lot of stool in the colon and so maybe can give her some stool softeners through the NG tube. We will get Nutrition to help, and she is on Clinimix right now. LABORATORY DATA: Work looks pretty good. Hematocrit 34 hemoglobin is 11, sodium 136, potassium 4.3, chloride 96, BUN 14, creatinine 0.5. CK is 30. Troponin is less than 0.01. cc: Panfilo López MD
[2019-08-06] MEDS: NS 1,000 ML IV SCH ×3 (10:00→23:07)
[2019-08-06 14:05] LABS: URINE SOURCE CLEAN CATCH
[2019-08-06 14:06] LABS: BILIRUBIN URINE NEGATIVE (NEGATIVE); BLOOD URINE NEGATIVE (NEGATIVE); COLOR ORANGE; GLUCOSE URINE NEGATIVE (NEGATIVE); KETONE URINE NEGATIVE (NEGATIVE); LEUKOCYTES URINE NEGATIVE (NEGATIVE); NITRITE URINE NEGATIVE (NEGATIVE); PROTEIN URINE 50 mg/dL (NEGATIVE); SP GRAVITY URINE 1.023; TURBIDITY URINE TURBID (CLEAR); UROBILINOGEN URINE NORMAL (NORMAL)
[2019-08-06 14:11] LABS: UR EPITHELIAL CELLS <10 /HPF (<10); URINE BACTERIA NEGATIVE /HPF; URINE RBC <10 /HPF (<10); URINE WBC <10 /HPF (<10)
[2019-08-06 14:20] LABS: URINE CASTS NONE SEEN; URINE CRYSTALS NONE SEEN; URINE SMALL ROUND CELLS NONE SEEN; URINE YEAST NONE SEEN
[2019-08-07] MEDS: CARAFATE LIQUID PO SCH (02:59)
[2019-08-07] MEDS: THYROID PO SCH ×2 (06:40→17:10)
[2019-08-07] MEDS ORDERED: ATIVAN IV PRN (09:40)
[2019-08-07] MEDS ORDERED: GOLYTELY NG SCH (10:00)
--- NOTE | 2019-08-07 10:03 | PROGRESS NOTE ---
DATE: 08/07/2019 SUBJECTIVE: Ms. Vieira is feeling better. She had a large bowel movement this morning. NG tube is in place. She is not nauseated. OBJECTIVE: Vital Signs: Temperature 98.1 degrees, pulse 90, respirations 19, blood pressure 120/69. Eyes: Pupils are equal and round. Lungs: Clear in all lung johnson. Cardiovascular exam: Regular rhythm and rate without murmur or S3. Abdomen: Soft. Skin: Skin is warm and dry. : Urine output is 1700 mL. ASSESSMENT AND PLAN: 1. Ileus. Recent transverse colectomy with reanastomosis for colon cancer. No sign of metastatic disease at this point. She did have some lymph node involvement, and she has underlying gastritis as well with anorexia. So, she has a nasogastric tube in, she feels better, and we are going to try a little bit of Colyte. I thought we would try 25 mL down the nasogastric tube every hour. 2. Severe protein calorie malnutrition. She is on Clinimix at this point. 3. Severe gastritis. She is on high-dose Protonix. 4. Protein calorie malnutrition. Continue present measures. 5. History of hypothyroidism. Continue her present thyroid. cc: Panfilo López MD
--- NOTE | 2019-08-07 10:26 | GASTROENTEROLOGY PROGRESS NOTE ---
DATE: 08/06/2019 SUBJECTIVE: No acute overnight events. Nausea is significantly improved with NG tube placement. Minimal abdominal pain. No fevers, chills, sweats, chest pain, shortness of breath. OBJECTIVE: Vital signs: Temperature 98.7 degrees, pulse 90, respiratory rate 21, blood pressure 113/83, O2 saturation 92% on room air. General: Patient is elderly, awake, alert in no acute distress. HEENT: Sclerae anicteric. Moist mucous membranes. Extraocular movements intact. NG tube in place to low intermittent wall suction. Neck: Supple. No JVD or lymphadenopathy. Cardiac: Regular rate and rhythm. No murmurs. Lungs: Clear to auscultation bilaterally. No wheezing. Abdomen: Soft, is distended, tympanic. Normoactive bowel sounds. Minimal tenderness to palpation. No rebound or guarding. Extremities: No clubbing, cyanosis, or edema. LABORATORY DATA: White count of 14.0 from 08/05/2019, hemoglobin 11.4, platelets of 486,000. INR 1.13. CMP is unrevealing. UA shows some proteinuria. ASSESSMENT AND PLAN: Ms. Kat Vieira is a 73-year-old woman with a history of pT3 and pN1 invasive colon cancer status post open transverse colectomy and an anastomosis who presented with partial mid to distal small-bowel obstruction. CT on presentation shows a high-grade mid distal small bowel obstruction and a very distended urinary bladder, trace ascites and small pleural perfusion. The patient says that her last bowel movement was yesterday. Her nausea and vomiting have significantly improved with NG tube placement. She currently is n.p.o. Her last EGD was done prior to the diagnosis of a colon cancer weeks ago. She is on PPI 20 mg IV b.i.d., which we have reduced to once daily, Zofran for nausea, IV fluids, Clinimix and Tylenol as needed for pain as well. We will recommend minimizing narcotics, correcting electrolyte derangements. We will follow with you. Please call with any questions or concerns. cc: Panfilo López MD
[2019-08-07] MEDS: NS 1,000 ML IV SCH ×2 (10:49→22:52)
[2019-08-07] MEDS: CLINIMIX E 4.25%-5% SOLUTION 1,000 ML IV SCH (10:50)
--- NOTE | 2019-08-07 12:21 | Diag Imaging Result Doc PS360 ---
EXAM: FLAT/UPRIGHT ABD/1 VIEW CHEST INDICATION: sbo TECHNIQUE: 3 views COMPARISON: Chest radiograph dated 08/05/2019 FINDINGS: The NG tube projects below the diaphragm and is assumed to be in the lumen of the stomach. Midline skin shari are noted. There are moderately gas-distended loops of small bowel in the abdomen suggesting postsurgical ileus or obstruction. There is no evidence of large volume free abdominal gas. There are bilateral small effusions that have increased in size during the interval. There is adjacent bibasilar atelectasis. No other new consolidation is identified. Cardiac silhouette is stable. IMPRESSION: 1.Small bilateral pleural effusions and increased in size during the interval. 2.Moderately distended loops of small bowel indicating postsurgical ileus versus obstruction. Electronically signed by Bryan Rodarte 08/07/2019 12:19 PM
--- NOTE | 2019-08-07 15:40 | GENERAL SURGERY PROGRESS NOTE ---
DATE: 08/07/2019 Ms. Vieira is readmitted with partial bowel obstruction a couple weeks postoperatively. She is afebrile with stable hemodynamics. . She has passed flatus and had a good bowel movement. She really has not had as much NG output as in the past since yesterday. The plan will be simply to clamp her NG tube. We will not remove it as of yet. I will get a flat and upright of her abdomen. cc: MD Panfilo Renteria MD MTDD
--- NOTE | 2019-08-07 19:48 | GASTROENTEROLOGY PROGRESS NOTE ---
DATE: 08/07/2019 SUBJECTIVE: Patient is resting in bed. She is feeling the same. She has NG tube in place. Surgery is on board. According to surgery note, the plan is to simply clamp her NG tube. She is on some gentle laxatives per the NG tube per Dr. López. She has had a bowel movement today. Vital signs: Temperature 98.3, pulse of 91, respiratory rate of 17, blood pressure 130/66, saturating 97% on room air. Body weight of 120 pounds. BMI 18.8 kg/m2. This is a thin female lying in bed in no acute distress. HEENT: Mild pallor. No icterus. NG tube in place. Neck: Supple. Abdomen: Protuberant, midline surgical dressing. No guarding. Discomfort in the pelvic region. Extremities: No cyanosis, clubbing. Neurologic: She is alert, awake, oriented x3. LABS: Labs were drawn today. Her hemoglobin and hematocrit from 08/05/2019 is 11.4 and 34.7. Her abdominal x-ray today showed small bilateral pleural effusions increased in size during the interval, moderately distended loops of small bowel indicating postsurgical ileus versus obstruction. No evidence of any large volume free abdominal gas. IMPRESSION AND PLAN: 1. Ileus versus small bowel obstruction. She had recent transverse colectomy with anastomosis for colon cancer. Surgery team is on board. Continue to follow the surgery recommendations. 2. Protein calorie malnutrition. She is on Clinimix. 3. Gastritis. She will continue on PPIs. 4. Anemia. Continue to watch for now and transfuse as needed. 5. Bowel regimen. She is on slow dose of GoLYTELY prep per Dr. López. I will add her on Dulcolax 10 mg per rectal b.i.d. for chronic constipation. 6. The above plans were discussed with the patient and all questions answered. Please call us with any further questions. We will sign off at this time and be available as needed. cc: MD Panfilo Roe MD [facility]ITAL[facility]iss[facility]
[2019-08-07] MEDS: DULCOLAX PR SCH (22:47)
[2019-08-07] MEDS: PROTONIX IV SCH (22:47)
[2019-08-07] MEDS: REMERON PO SCH (22:47)
[2019-08-08] MEDS: REMERON PO SCH ×2 (05:40→23:37)
[2019-08-08] MEDS: THYROID PO SCH ×2 (06:29→18:13)
--- NOTE | 2019-08-08 08:27 | PROGRESS NOTE ---
DATE: 08/08/2019 SUBJECTIVE: She pulled her NG tube out. She said it came out, but she pulled her NG tube out. She did have several bowel movements. Her abdomen looks much better. The nausea has resolved. OBJECTIVE: Vital Signs: Temperature 98.2 degrees, pulse 91, respirations 17, blood pressure 130/67. HEENT: Pupils are equal and round. Lungs: Clear in all lung johnson. Cardiovascular: Regular rhythm and rate without murmur or S3. Abdomen: Soft. Skin: Warm and dry. ASSESSMENT AND PLAN: 1. Ileus versus small-bowel obstruction. She had recent transverse colectomy with anastomosis for colon cancer. I am going to put a feeding tube in, a Dobbhoff, a smaller tube, and we are going to try and initiate some feeding and see how we do. I did give her some Colyte yesterday while the tube was in, and she has had several bowel movements. I will get a KUB and see how her tummy looks. 2. Protein calorie malnutrition. She is on Clinimix. 3. Gastritis. She is on high-dose proton pump inhibitors. 4. Anemia. Will continue to follow. Appears stable. 5. She has Dulcolax 10 mg per rectum twice daily, and appears to be improving clinically. cc: Panfilo López MD
[2019-08-08] MEDS ORDERED: CHLORASEPTIC SPRAY MT PRN (09:48)
[2019-08-08] MEDS ORDERED: CHLORASEPTIC SPRAY MT ONE (09:48)
[2019-08-08] MEDS ORDERED: GOLYTELY NG SCH (10:00)
--- NOTE | 2019-08-08 10:06 | GENERAL SURGERY PROGRESS NOTE ---
DATE: 08/08/2019 SUBJECTIVE: Ms Vieira is better. She has had bowel movements through the night. She is not nauseated anymore. I agree with starting her on liquids to see how she does. cc: MD Panfilo Renteria MD
[2019-08-08] MEDS: CLINIMIX E 4.25%-5% SOLUTION 1,000 ML IV SCH ×4 (10:49→23:37)
[2019-08-08] MEDS: NS 1,000 ML IV SCH ×2 (10:56→23:36)
--- NOTE | 2019-08-08 11:08 | Diag Imaging Result Doc PS360 ---
EXAM: CHEST/ABD TUBE PLACEMENT INDICATION: NGT placement TECHNIQUE: One view COMPARISON: 08/08/2019 FINDINGS: The recently placed weighted NG tube is identified. The tip projects near the gastroesophageal junction. Advancement of 7-8 cm is suggested. The upper abdomen is grossly stable as compared to the very recent prior study. IMPRESSION: Interval placement of NG tube with the tip near the gastroesophageal junction. Advancement of 7 to 8 cm is suggested. Electronically signed by Bryan Rodarte 08/08/2019 11:06 AM
--- NOTE | 2019-08-08 11:10 | Diag Imaging Result Doc PS360 ---
EXAM: KUB ABDOMEN INDICATION: ABD F/U TECHNIQUE: One view COMPARISON: 08/07/2019 FINDINGS: Distended loops of bowel throughout the abdomen are essentially stable. No large volume free abdominal gas is identified. Midline skin shari are again noted. IMPRESSION: Stable gaseous distention of small bowel. Electronically signed by Bryan Rodarte 08/08/2019 11:07 AM
[2019-08-08] MEDS: DULCOLAX PR SCH (12:52)
[2019-08-08] MEDS: PROTONIX IV SCH (23:03)
[2019-08-09] MEDS: DULCOLAX PR SCH ×3 (01:30→21:50)
[2019-08-09] MEDS: THYROID PO SCH ×2 (06:03→17:09)
--- NOTE | 2019-08-09 06:28 | GENERAL SURGERY PROGRESS NOTE ---
DATE: 08/09/2019 SUBJECTIVE: Patient doing about the same. She said she hurt yesterday, but otherwise is doing okay. OBJECTIVE: Vital Signs: Patient is currently afebrile. Her vital signs are stable. General: No acute distress. Cardiovascular: Regular rate and rhythm. Lungs: Grossly clear. Abdomen: Soft. Mild distention. Positive bowel sounds auscultated. ASSESSMENT AND PLAN: A 73-year-old female with a postoperative ileus. 1. Postoperative ileus. At this time, continue current treatment. Continue to monitor. I think she is improving of her ileus. She still has some anxiety with the overall process, but I think she feels better after discussion today. 2. Protein malnutrition. At this time, continue current treatment with nutrition. cc: MD Panfilo Pitts MD
[2019-08-09] MEDS: CLINIMIX E 4.25%-5% SOLUTION 1,000 ML IV SCH ×2 (08:18→22:53)
[2019-08-09] MEDS: NS 1,000 ML IV SCH ×2 (08:19→21:50)
--- NOTE | 2019-08-09 09:59 | PROGRESS NOTE ---
DATE: 08/09/2019 SUBJECTIVE: Ms. Vieira is doing a little better in that she has a smaller NG tube in place. It is much more comfortable. They did stop her feeding as she was having some abdominal cramping. No nausea. She was able to get some liquids down and we still have Clinimix going. OBJECTIVE: Temperature 98.2 degrees, pulse 87, respirations 18, blood pressure 129/69. Pupils are equal and round. Lungs are clear in all lung johnson. Cardiovascular Examination: Regular rhythm and rate without murmur or S3. Abdomen: There is mild distention. She has been afebrile. Urine output about 6200 mL. ASSESSMENT AND PLAN: 1. Postoperative ileus. Continue treatment. I think it is improving. Still has a lot of anxiety but nausea has improved. 2. Protein calorie malnutrition. Continue Clinimix and try and initiate tube feeding. She did have constipation and that has improved. Her x-ray on the , stable gaseous distention of the small bowel. cc: Panfilo López MD
[2019-08-09] MEDS: PROTONIX IV SCH (21:50)
[2019-08-09] MEDS: SODIUM CHLORIDE 0.9% INJ SCH (21:50)
[2019-08-09] MEDS: REMERON PO SCH (22:53)
[2019-08-10] MEDS: THYROID PO SCH ×2 (06:31→18:06)
[2019-08-10 09:58] LABS: AGAP 14; ALB/GLOB RATIO 1.2; ALBUMIN 2.8 g/dL (3.5-5.0); ALKALINE PHOSPHATASE 105 U/L (32-104); BUN 13 mg/dL (8-22); CALCIUM 7.7 mg/dL (8.8-10.2); CHLORIDE 99 mmol/L (98-107); COSMO 276; CREATININE 0.3 mg/dL (0.5-0.9); ESTIMATED GFR > 60; GLUCOSE 98 mg/dL (70-104); GOT 13 U/L (10-30); GPT 9 U/L (10-36); POTASSIUM 3.5 mmol/L (3.5-5.1); SODIUM 138 mmol/L (136-145); TCO2 25 mmol/L (25-35); TOTAL BILIRUBIN 0.41 mg/dL (0.20-1.00); TOTAL PROTEIN 5.2 g/dL (6.3-8.3)
--- NOTE | 2019-08-10 10:10 | PROGRESS NOTE ---
DATE: 08/10/2019 SUBJECTIVE: Ms. Vieira is feeling better. Her nausea is gone. She is tolerating the tube feeding. Her bowels are moving. She is not having the abdominal cramping, so I plan to give her some NG feeding. Dr. Morales has stopped the Clinimix. She was complaining of swelling in her legs, and we will try and get nutrition down again tomorrow, and pull the NG tube, and see if we can find something that is palatable for she. Does not like the Ensure. She says it is too sweet. OBJECTIVE: Vital Signs: Temperature 97.9 degrees, pulse 92, respirations 20, blood pressure 127/66. HEENT: Pupils are equal and round. Lungs: Clear in all lung johnson. Cardiovascular: Regular rhythm and rate without murmur or S3. Abdomen: Soft, nondistended. Urine output is 7200 mL. ASSESSMENT AND PLAN: 1. Postoperative ileus, which is improving. 2. Severe gastritis. 3. Status post transverse colectomy. She seems to be heading in the right direction. We stopped her intravenous fluids, stopped her Clinimix. She has complained of swelling in her legs, and will see if we can maybe pull the feeding tube tomorrow, and see if we can get some nutrition down. She is on MiraLAX, and she does have hypothyroidism, appears to be euthyroid on her thyroid supplement. cc: Panfilo López MD
--- NOTE | 2019-08-10 11:03 | GENERAL SURGERY PROGRESS NOTE ---
DATE: 08/10/2019 SUBJECTIVE: The patient seems to be doing a little bit better. She is worried about her legs. OBJECTIVE: Vital Signs: The patient is currently afebrile. Her vital signs are stable. General: No acute distress. Cardiovascular: Regular rate and rhythm. Lungs: Grossly clear. Abdomen: Soft. Some mild distention. Bowel sounds auscultated. ASSESSMENT AND PLAN: A 73-year-old female with postoperative ileus. 1. Postoperative ileus. At this time, continue current treatment. I think her ileus is improving. She is having bowel movements with Dulcolax, but she is concerned about the suppositories, so will put her on MiraLAX. I think we can stop her Clinimix. She is also worried about her fluid status. I discussed with her extensively, the option of potentially going to a rehab facility, but I think she is adamant that she does not want to go there, but I think it would probably be a good idea for her to do so. She also states that she has some powder form of protein that she can take at home because she does not want to take Ensure. 2. Protein malnutrition at this time. See above. cc: MD Panfilo Pitts MD
[2019-08-10] MEDS: MIRALAX PO SCH (16:45)
[2019-08-10] MEDS: REMERON PO SCH (20:46)
[2019-08-10] MEDS: PROTONIX IV SCH (21:35)
[2019-08-11] MEDS: THYROID PO SCH ×2 (06:38→17:07)
[2019-08-11 09:42] LABS: MAGNESIUM 1.7 mg/dL (1.5-2.7); PHOSPHORUS 3.2 mg/dL (2.7-4.5)
--- NOTE | 2019-08-11 09:46 | GENERAL SURGERY PROGRESS NOTE ---
DATE: 08/11/2019 SUBJECTIVE: The patient seems to be doing okay. She is very anxious about her fluid volume status. OBJECTIVE: Vital Signs: The patient is currently afebrile. Her vital signs are stable. General Examination: No acute distress. Cardiovascular: Regular rate and rhythm. Lungs: Grossly clear. Abdomen: Soft. Really minimally distended. Incision is healing well. Bowel sounds auscultated. ASSESSMENT AND PLAN: A 73-year-old female with postoperative ileus. Postoperative ileus. At this time, she is tolerating her tube feeds. We have gotten her off excess intravenous fluids. She is having bowel movements. We will continue MiraLAX. We will continue to follow her. Her anxiety is likely contributing to her elevation in her blood pressure but we will continue to monitor her. cc: MD Panfilo Pitts MD
--- NOTE | 2019-08-11 09:49 | PROGRESS NOTE ---
DATE: 08/11/2019 SUBJECTIVE: Ms. Vieira is doing better. She is feeling better. She has refused taking her thyroid medicine. She has refused taking the Remeron, but she does feel better. She has been able to get some liquids down. I told her we are going to keep the NG tube in today. We did stop the IV Clinimix, and she is going to stay on the same diet and see if she can get down some Ensure or equivalent to Ensure 1 or 2 today. OBJECTIVE: Temperature 99.2 degrees, pulse 90, respirations 18, and blood pressure 119/63. Pupils are equal and round. Lungs are clear in all lung johnson. Cardiovascular exam regular rhythm and rate without murmur or S3. Urine output is 1800 mL. ASSESSMENT AND PLAN: 1. Postoperative ileus. Ileus is improving. She is having bowel movements with Dulcolax. She is on MiraLAX. We stopped her Clinimix. 2. Gastritis, which I think is improving slowly. Continue high-dose proton pump inhibitors. 3. Protein calorie malnutrition. She has a feeding tube in, which she is tolerating. We will continue her feeding and continue her clear liquid diet. See if she can swallow down some supplemental nutrition. I was going to have them look at some other options besides Ensure. She feels like the Ensure is too sweet. I am going to encourage her to take the Remeron. We will give her 30 mg p.o. at bedtime. We will continue MiraLAX 17 g twice a day. Also, encouraged her to take Thyroid takes 30 mg twice a day. 4. She is increasing her activity. I will get physical therapy involved. cc: Panfilo López MD
[2019-08-11 09:53] LABS: AGAP 11; ALB/GLOB RATIO 1.1; ALBUMIN 2.9 g/dL (3.5-5.0); ALKALINE PHOSPHATASE 91 U/L (32-104); BUN 10 mg/dL (8-22); CALCIUM 8.3 mg/dL (8.8-10.2); CHLORIDE 98 mmol/L (98-107); COSMO 270; CREATININE 0.2 mg/dL (0.5-0.9); ESTIMATED GFR > 60; GLUCOSE 113 mg/dL (70-104); GOT 12 U/L (10-30); GPT 6 U/L (10-36); POTASSIUM 2.9 mmol/L (3.5-5.1); SODIUM 135 mmol/L (136-145); TCO2 26 mmol/L (25-35); TOTAL PROTEIN 5.6 g/dL (6.3-8.3)
[2019-08-11] MEDS ORDERED: MOTRIN PO PRN (13:57)
[2019-08-11] MEDS ORDERED: SUDAFED PO PRN (14:00)
[2019-08-11] MEDS: ZOFRAN IV PRN (16:42)
[2019-08-11] MEDS: MIRALAX PO SCH (17:07)
[2019-08-11] MEDS: REMERON PO SCH (23:03)
[2019-08-11] MEDS: PROTONIX IV SCH (23:05)
[2019-08-12] MEDS: THYROID PO SCH ×2 (06:11→16:18)
[2019-08-12] MEDS: MIRALAX PO SCH (08:31)
--- NOTE | 2019-08-12 10:05 | PROGRESS NOTE ---
DATE: 08/12/2019 SUBJECTIVE: Ms. Vieira's abdomen feels bloated, and she has had more nausea yesterday. The nausea has resolved. She only got 1 bottle of nutritional supplement down. She still has the NG tube in. She is having bowel movements. Her bowel sounds sound good. She is discouraged so we will continue NG tube feeding, and have tank cleaning supervisor still look and see if there is anything we can try that will help. I think she is heading in the right direction. OBJECTIVE: She remains afebrile. Temperature 98.6, pulse 99, respirations 18, and blood pressure 124/62. Pupils are equal and round. Lungs are clear in all lung johnson. Cardiovascular with regular rhythm and rate without murmur or S3. Abdomen is soft. Skin is warm and dry. Urine output is 1400 mL. ASSESSMENT AND PLAN: 1. Postoperative ileus improving. She has good bowel sounds, and she is having bowel movements. 2. Severe gastritis, which I think is slowly improving as well. Continue her nasogastric tube feeding. Continue to see if we can get her to swallow and get some nutrition p.o. 3. Severe protein calorie malnutrition. 4. Anxiety. I will have her just take one of those tablets of Remeron 15 mg. Continue her thyroid supplement. Continue her activity. cc: Panfilo López MD
--- NOTE | 2019-08-12 10:27 | GENERAL SURGERY PROGRESS NOTE ---
DATE: 08/12/2019 SUBJECTIVE: Patient doing about the same. Still complained a little bit of nausea. She is having bowel movements, although she is saying she is having too many bowel movements at this time. She is passing gas also. OBJECTIVE: Vital Signs: Patient is currently afebrile. Her vital signs are stable. General: No acute distress, but appears anxious female. Cardiovascular: Regular rate and rhythm. Lungs: Grossly clear. Abdomen: Soft. No real distention. Incision is healing. Bowel sounds auscultated. ASSESSMENT AND PLAN: A 73-year-old female with postoperative ileus. Postoperative ileus. At this time, continue current treatment. I think some of her underlying issues with nausea may be related to the anxiety. Would phone counselor taking in p.o. We will continue to monitor. Continue supportive care. cc: MD Panfilo Pitts MD
--- NOTE | 2019-08-12 11:48 | PROGRESS NOTE ---
DATE: 08/12/2019 SUBJECTIVE: The patient was sitting in the bed alert and oriented x3 and was complaining of feeling nauseated and feeling of abdominal bloating. Patient has an NG tube feeding. Her abdomen is hard, distended, and she had a midline incision. She had 1 bowel movement today and complains of abdominal pain. OBJECTIVE: Vital signs: 98.6, heart rate is 99, respiration is 18, blood pressure is 124/62. Oxygen saturation is 94% on room air. General appearance: She is sitting in the bed, alert and oriented x3, and she complained of nausea and pain in her abdomen. HEENT: Pale conjunctivae. No icterus. PERRLA. Neck: Supple. Lungs: Clear to auscultation in the anterior and posterior johnson. No abnormal breath sounds heard. Cardiovascular: Regular rate and rhythm, S1, S2 heard on auscultation. No rubs, murmurs, or gallops heard on auscultation. Abdomen: Hard, tender, distended, and she has a midline incision. Extremities: No cyanosis or clubbing but +2 edema noted bilaterally in the lower extremities. Pulses present +2. Neurologic: Alert and oriented x3. LABORATORY: WBC is 14.07, RBC is 4.11, hemoglobin is 11.4, hematocrit is 34.7, platelet count is 486,000. Sodium is 135, potassium is 2.9, chloride is 98, carbon dioxide is 26, anion gap is 11, BUN is 10 and creatinine is 0.2, calcium is 8.3. Urinalysis showed a trace of protein. IMPRESSION AND PLAN: 1. Postoperative ileus. 2. Gastritis. 3. Protein calorie malnutrition. 4. Anxiety. 5. Nasogastric tube feeding. PLAN: Continued with the current medication plan and GI prophylaxis to avoid constipation. We will continue with paln of care provided by the primary care and surgeon. This plan of care was discussed with Dr. Wilcox. Call us with any concerns or any questions. Dictated by ZAMZAM Cunningham for Chuck Wilcox MD cc: MD Panfilo Roe MD I have seen the patient myself and discussed the above findings and plan of care with nurse practitioner. Discussed with the patient at bedside and all questions were answered. Please call us with any further questions. RM
[2019-08-12] MEDS: ZYRTEC PO SCH (21:31)
[2019-08-12] MEDS: PROTONIX IV SCH (21:31)
[2019-08-12] MEDS: REMERON PO SCH (21:31)
[2019-08-13] MEDS: THYROID PO SCH ×3 (05:51→15:58)
--- NOTE | 2019-08-13 06:51 | GENERAL SURGERY PROGRESS NOTE ---
DATE: 08/13/2019 SUBJECTIVE: Patient seems to be doing a little bit better, and feeling a little bit better today. OBJECTIVE: Vital signs: Patient is currently afebrile. Her vital signs are stable. General: No acute distress. Cardiovascular: Regular rate and rhythm. Lungs: Grossly clear. Abdomen: Soft and nontender. Incision is healing well. Bowel sounds auscultated. ASSESSMENT AND PLAN: A 73-year-old female with a postoperative ileus. Postoperative ileus. At this time, continue current treatment. I think she is doing better. Continue tube feeds for her severe protein malnutrition, and continue to monitor. cc: MD Panfilo Pitts MD
[2019-08-13 08:57] LABS: AGAP 11; ALB/GLOB RATIO 0.9; ALBUMIN 2.6 g/dL (3.5-5.0); ALKALINE PHOSPHATASE 80 U/L (32-104); BUN 12 mg/dL (8-22); CALCIUM 8.6 mg/dL (8.8-10.2); CHLORIDE 96 mmol/L (98-107); COSMO 272; CREATININE 0.3 mg/dL (0.5-0.9); ESTIMATED GFR > 60; GLUCOSE 111 mg/dL (70-104); GOT 11 U/L (10-30); GPT 5 U/L (10-36); MAGNESIUM 1.6 mg/dL (1.5-2.7); PHOSPHORUS 2.9 mg/dL (2.7-4.5); POTASSIUM 2.9 mmol/L (3.5-5.1); SODIUM 136 mmol/L (136-145); TCO2 29 mmol/L (25-35); TOTAL BILIRUBIN 0.22 mg/dL (0.20-1.00); TOTAL PROTEIN 5.4 g/dL (6.3-8.3)
[2019-08-13] MEDS ORDERED: POTASSIUM CHLORIDE 20% LIQUID PO ONE (09:04)
[2019-08-13] MEDS ORDERED: SODIUM CHLORIDE 0.9% INJ SCH (09:15)
--- NOTE | 2019-08-13 09:25 | PROGRESS NOTE ---
DATE: 08/13/2019 SUBJECTIVE: Ms. Vieira is feeling better. Her abdomen is less distended. She has no nausea. She is actually hungry for food. OBJECTIVE: Vital Signs: Temperature 98.7 degrees, pulse 94, respirations 17, blood pressure 117/64. Eyes: Pupils are equal and round. Neck: No distended neck veins. Lungs: Clear anterior and posterior. Cardiovascular exam: Regular rhythm and rate without murmur or S3. Abdomen: Soft. Extremities: No pedal edema. : Urine output 2400 mL. ASSESSMENT AND PLAN: 1. She is tolerating the nasogastric tube feeding, and we have been able to go up on her rate. She wants to try and see if she can drink some Ensure today. Her lab looked good. She does have a little low potassium. Bowels are moving. We will supplement some potassium through the nasogastric tube. I am going to continue high-dose Protonix. She is on Remeron 15 mg oral at bedtime. We will give the Protonix 40 mg every 12 hours intravenous for now. We have the intravenous line in. 2. History of hypothyroidism. Appears to be euthyroid. Taking her thyroid 30 mg twice a day, and she is on MiraLAX 17 grams twice a day. cc: Panfilo López MD
[2019-08-13] MEDS: MIRALAX PO SCH (09:40)
[2019-08-13] MEDS: PROTONIX IV SCH ×2 (11:01→20:21)
[2019-08-13] MEDS: SODIUM CHLORIDE 0.9% INJ SCH (11:01)
[2019-08-13] MEDS: ZYRTEC PO SCH (20:17)
[2019-08-13] MEDS: REMERON PO SCH (20:21)
[2019-08-13] MEDS ORDERED: DULCOLAX PR PRN (20:32)
[2019-08-14] MEDS: THYROID PO SCH ×2 (06:07→17:25)
[2019-08-14] MEDS: MIRALAX PO SCH (08:37)
[2019-08-14] MEDS: PROTONIX IV SCH ×2 (08:37→20:20)
--- NOTE | 2019-08-14 09:34 | PROGRESS NOTE ---
DATE: 08/14/2019 SUBJECTIVE: Ms Vieira is feeling much better and she is hungry. She is wanting to try a soft diet. She wants to keep the NG tube in, but tolerating the nutrition. She had a large bowel movement yesterday. Dulcolax suppository seemed to help. Urine output was 3200 mL. OBJECTIVE: Lungs: Clear in all lung johnson. Cardiovascular: Regular rate without murmur or S3. Abdomen: Soft. Skin: Warm and dry. ASSESSMENT AND PLAN: 1. She is tolerating the nasogastric tube feeding, doing better. Severe gastritis which I think is improving symptomatically. Continue high-dose proton pump inhibitor. She is going to try a soft diet in addition to her NG tube nutrition. 2. Status post transverse colon resection and her bowels seem to be improving. She had an ileus when she came in and that seems to be improved. 3. History of hypothyroidism. Continue her Synthroid. Note that her chemistries and CBC from yesterday, we supplemented some potassium. Her albumin is 2.6. cc: Panfilo López MD
[2019-08-14 12:15] LABS: AGAP 11; ALBUMIN 2.6 g/dL (3.5-5.0); ALKALINE PHOSPHATASE 75 U/L (32-104); BUN 12 mg/dL (8-22); CALCIUM 8.5 mg/dL (8.8-10.2); CHLORIDE 100 mmol/L (98-107); COSMO 274; CREATININE 0.3 mg/dL (0.5-0.9); ESTIMATED GFR > 60; GLUCOSE 102 mg/dL (70-104); GOT 14 U/L (10-30); GPT 5 U/L (10-36); POTASSIUM 3.4 mmol/L (3.5-5.1); SODIUM 137 mmol/L (136-145); TCO2 26 mmol/L (25-35); TOTAL PROTEIN 5.3 g/dL (6.3-8.3)
--- NOTE | 2019-08-14 13:22 | GENERAL SURGERY PROGRESS NOTE ---
DATE: 08/14/2019 SUBJECTIVE: The patient feels better today. No significant abdominal pain. No nausea or vomiting. She is tolerating her clear liquids. OBJECTIVE: Vital signs: She is afebrile. Vital signs are stable. General: She is awake, alert, and oriented x3. No acute distress. Gastrointestinal: Soft, nondistended. Minimally tender. Incision is intact. There is slight cloudy drainage from a couple of spots. No erythema. She does have bowel sounds. ASSESSMENT AND PLAN: A 73-year-old female status post partial colectomy for colon cancer. She has had a postoperative ileus. She seems to be improving. We will advance her to a soft diet and hold the tube feeds and start calorie counts. cc: MD Panfilo Mireles MD
[2019-08-14] MEDS: CULTURELLE PO SCH (20:19)
[2019-08-14] MEDS: ZYRTEC PO SCH (20:20)
[2019-08-14] MEDS: SODIUM CHLORIDE 0.9% INJ SCH (20:20)
[2019-08-14] MEDS: REMERON PO SCH (22:49)
[2019-08-15] MEDS: THYROID PO SCH ×2 (06:33→17:11)
[2019-08-15 07:55] LABS: AGAP 11; ALBUMIN 2.9 g/dL (3.5-5.0); ALKALINE PHOSPHATASE 79 U/L (32-104); BUN 11 mg/dL (8-22); CALCIUM 9.1 mg/dL (8.8-10.2); CHLORIDE 98 mmol/L (98-107); COSMO 274; CREATININE 0.3 mg/dL (0.5-0.9); ESTIMATED GFR > 60; GLUCOSE 109 mg/dL (70-104); GOT 15 U/L (10-30); GPT 6 U/L (10-36); POTASSIUM 3.4 mmol/L (3.5-5.1); SODIUM 137 mmol/L (136-145); TCO2 28 mmol/L (25-35); TOTAL BILIRUBIN 0.27 mg/dL (0.20-1.00); TOTAL PROTEIN 5.9 g/dL (6.3-8.3)
[2019-08-15] MEDS: CULTURELLE PO SCH ×2 (09:29→21:01)
[2019-08-15] MEDS: MIRALAX PO SCH (09:29)
[2019-08-15] MEDS: PROTONIX IV SCH ×2 (09:29→21:02)
--- NOTE | 2019-08-15 13:09 | PROGRESS NOTE ---
DATE: 08/15/2019 SUBJECTIVE: Ms. Vieira feels much better, and she is tolerating diet and eating, and her appetite seems to be returning, so we are going to pull her NG tube and see how we do with soft diet. OBJECTIVE: Vital Signs: Temp 98.5 degrees, pulse 96, respirations 20, blood pressure 113/56. HEENT: Pupils are equal and round. Lungs: Clear in all lung johnson. Cardiovascular: Regular rhythm and rate without murmur or S3. Urine output is 3000 mL. ASSESSMENT AND PLAN: 1. Status post partial colectomy for colon cancer, transitional colon with colon mass, adenocarcinoma, postoperative ileus, which is improving. 2. Severe gastritis. We have her on high-dose proton pump inhibitor, and that is improving as well. 3. Severe anxiety. 4. Hypothyroidism. She is making good improvement, so stop her nasogastric tube and see how we do. Continue ambulation. Encourage with progress. cc: Panfilo López MD
--- NOTE | 2019-08-15 13:54 | GENERAL SURGERY PROGRESS NOTE ---
DATE: 08/15/2019 SUBJECTIVE: The patient feels better. She is tolerating a full liquid diet without nausea or vomiting. She is having bowel movements. OBJECTIVE: She is afebrile. Vital signs are stable.General: She is awake, alert, oriented x3. No acute distress. Gastrointestinal: Soft, nondistended. Incision is intact. ASSESSMENT AND PLAN: A 73-year-old female status post partial colectomy for colon cancer. Her ileus is improving. She will be advanced to a soft diet. The feeding tube has been removed. cc: MD Panfilo Mireles MD
[2019-08-15] MEDS: REMERON PO SCH (21:01)
[2019-08-15] MEDS: ZYRTEC PO SCH (21:02)
--- NOTE | 2019-08-16 06:07 | GENERAL SURGERY PROGRESS NOTE ---
DATE: 08/16/2019 SUBJECTIVE: Patient doing better. She is tolerating p.o. She had her nasogastric tube and tube feeds stopped this weekend. OBJECTIVE: Vital Signs: Patient is currently afebrile. Her vital signs are stable. General: No acute distress. Cardiovascular: Regular rate and rhythm. Lungs: Grossly clear. Abdomen: Soft. Appropriately tender. Incision is healing well. ASSESSMENT AND PLAN: A 73-year-old female status post transverse colectomy with postoperative ileus. Postoperative ileus. At this time, I think it has resolved. I think from a surgical point of view, she could be discharged. I will leave it up to her primary care physician. Otherwise, continue supportive care. cc: MD Panfilo Pitts MD
[2019-08-16 08:23] VITALS: BP 115/48
--- NOTE | 2019-08-16 09:40 | DISCHARGE SUMMARY ---
ADMISSION DATE: 08/05/2019 DISCHARGE DATE: 08/16/2019 HISTORY OF PRESENT ILLNESS: A 73-year-old patient of mine, recently in the hospital. She had a transverse colectomy with reanastomosis for adenocarcinoma, history of severe gastritis, and she is unable to eat, intractable nausea, severe protein calorie malnutrition, volume contraction, dehydration. Put her in the hospital, put an NG tube in for low wall suction, and the nausea improved. We started her on Clinimix. We then changed her to a Dobbhoff feeding tube, and started nutrition. With the help of the content engineer, advanced it, was getting 40 mL an hour, and started her on some Remeron. She had an ileus as well, and she started having bowel movements, and we had her on high-dose proton pump inhibitor and MiraLAX. Her appetite seemed to come back in part. She was able to keep down a soft meal. I was able to pull her NG tube on 08/15/2019, yesterday, and she got down food, a reasonable amount. She would like to go home. She is strong enough to ambulate around. Her bowels seem to be moving. She seems to be comfortable. DISCHARGE ORDERS: I am going to keep her on Remeron 15 mg at bedtime. She is taking her Zyrtec 10 mg daily. Will stop her pain medicines. She is on Culturelle 1 twice a day, Remeron 15 mg at bedtime, Protonix 40 mg twice a day, MiraLAX 17 grams, and will do that once a day, and her thyroid, she takes 30 mg twice a day. She has remained euthyroid. Prealbumin came up to 8, it was down to 3 or 4. Her electrolytes looked good, sodium 137, potassium 3.4, chloride 98, BUN 11, creatinine 0.3. I did supplement some potassium while she was here. Encourage home health and exercise and activity. Plan to let her go home today. cc: Panfilo López MD
--- NOTE | 2019-08-16 09:44 | PROGRESS NOTE ---
DATE: 08/16/2019 SUBJECTIVE: The patient was sitting in the bed, alert, oriented x3, eating her breakfast. She does not have an NG tube. She is tolerating her food well. She has denied any complaints of nausea, vomiting, diarrhea or abdominal pain. She had 1 bowel movement today and denied any blood in the stools. OBJECTIVE: Vital Signs: Temperature 98.4 degrees, pulse is 89, respirations 20, blood pressure is 115/48, oxygen saturation 96% on room air. The patient weighs 120. Her BMI is 18.8 kg/m2. General appearance: AO x 3, in no acute distress. HEENT: Pale conjunctivae. No icterus. PERRL. Neck: Supple. Lungs: Lung sounds clear to auscultation in the anterior and posterior johnson. No abnormal breath sounds heard. Cardiovascular: Regular rate and rhythm. No murmurs, rubs, or gallops heard on auscultation. Abdomen: Abdomen is hard, tender, distended, and she has a midline incision. Bowel sounds heard in all 4 quadrants. Extremities: No cyanosis, no clubbing. Generalized edema noted in the lower extremities. Pulses present 2+. Neurological: Alert, oriented x3. Nonfocal. Cranial nerves 2-12 grossly intact. LABORATORY DATA: WBC is 14.07, RBC 4.11, hemoglobin is 11.4, hematocrit 34.7, and platelet count 486,000. Sodium is 137, potassium is 3.4, chloride is 98, carbon dioxide is 20, anion gap is 11, BUN is 11, creatinine is 0.3, glucose is 109, calcium is 9.1. Urine showed trace of protein. ASSESSMENT: 1. Postoperative ileus. 2. Gastritis. 3. Protein calorie malnutrition. 4. Anxiety. PLAN: Continue with the current medication plan, GI prophylaxis for gastritis, continue miralax to avoid constipation. Patient has been asked to return to the clinic for follow up and colonoscopy in one year. We will continue with the plan of care provided by the primary care team and the surgeon, and this plan was discussed with Dr. Wilcox. Please call us with any questions or concerns. Dictated by ZAMZAM Cunningham for Chuck Wilcox MD cc: MD Panfilo Roe MD I have seen and examined the above patient myself. I agree with the above assessment and plan of care. Please call us with any questions or concerns. RM
[2019-08-16] MEDS: CULTURELLE PO SCH (10:25)
[2019-08-16] MEDS: MIRALAX PO SCH (10:25)
[2019-08-16] MEDS: PROTONIX IV SCH (10:25)
== END 2019-08-16 11:45 | disposition home health service (06) | DRG 388 ==
LOC: EDSTATUS 09:47 → EDIPHOLD 09:49 → 3N 13:06
PROVIDERS: ADMIT Emergency Medicine; ATTEND Emergency Medicine